=== PATIENT | female | born 1970 | race Caucasian/White ===

== ENCOUNTER 2017-02-07 14:38 | Observation (INO) ==
[2017-02-07] MEDS ORDERED: *HR* OxyCODONE/APAP 10/325 TABLET PO ONE (15:44)
[2017-02-07] MEDS ORDERED: *HR* FentaNYL (PF) 100 MCG/2 ML VIAL IVP ONE ×4 (15:45→17:56)
--- NOTE | 2017-02-07 15:52 | Emergency Department Note ---
Disposition Clinical Impression: SVC syndrome Disposition: Admitted As Inpatient Condition: Good Time of Disposition: 20:30 General Adult HPI - General Chief complaint: ED General Medical Stated complaint: Needs Stent per cancer center Time Seen by Provider: 02/07/17 14:47 Source: patient Limitations: no limitations Nursing Notes Reviewed: Yes Vital Signs Reviewed: Yes - History of Present Illness HPI Narrative: 46-year-old female history of lung cancer presents with swelling in her right arm. She has received a total of 4 chemotherapy treatments and 5 radiation treatments all starting since November 2016. Her oncologist is Dr. Gross. She was seen and evaluated by her oncologist today and was recommended to come to the emergency department to have a stent placed in her superior vena cava or subclavian by interventional radiology for the swelling. We have spoke to Dr. Gross and the interventional radiologist Dr. Shah, recommend to get basic labs and co-acts. Patient has a history of DVT. She was recently on Eliquis and now on Lovenox. Her last Eliquis dose was yesterday night and Lovenox this morning. She denies any other complaints such as headache, fever, chest pain or shortness of breath. Pain Scale: 4 - Related Data Home Medications Medication Instructions Recorded Confirmed Enoxaparin [Lovenox] 70 mg SQ Q12H 02/07/17 02/07/17 Previous Rx's Medication Instructions Recorded Dexamethasone [Decadron] 1 tab PO BID #60 tab 11/22/16 Docusate [Colace] 100 mg PO BID #60 capsule 11/22/16 Magic Mouthwash [Magic Mouthwash 10 ml PO QID PRN #240 ml 11/22/16 BLM] Ondansetron HCl [Zofran] 4 mg PO Q4H PRN #30 tablet 11/22/16 Prochlorperazine Maleate 10 mg PO Q6H PRN #30 tablet 11/22/16 [Compazine] Magnesium Oxide [Magnesium] 400 mg PO BID #60 tablet 12/03/16 Omeprazole [PriLOSEC] 20 mg PO DAILY #30 cap 12/16/16 LORazepam [Ativan] 1 mg PO BID PRN #30 tablet 12/24/16 Temazepam [Restoril] 15 - 30 mg PO HS PRN #60 capsule 12/24/16 Folic Acid 1 mg PO DAILY #30 tablet 01/03/17 Lactulose 15 ml PO BID PRN #300 mls 01/03/17 Sennosides [Senna] 8.6 mg PO DAILY PRN #60 tablet 01/03/17 GuaiFENesin/Codeine [Robitussin 5 - 10 ml PO TID #300 ml 01/15/17 w/Codeine] Azithromycin [Azithromycin 6-Tab 250 mg PO PER PKG DI #6 tab 02/05/17 Pack] Oxycodone HCl/Acetaminophen 1 each PO Q4H PRN #120 tablet 02/06/17 [Percocet 10-325 mg Tablet] Allergies Allergy/AdvReac Type Severity Reaction Status Date / Time No Known Allergies Allergy Verified 02/07/17 16:50 All systems ED: reviewed and negative except as stated. Review of Systems: As Per HPI Constitutional: Denies: fever, chills ENT ED: Denies: congestion Cardiovascular: Denies: chest pain, dyspnea on exertion Respiratory: Reports: cough. Denies: dyspnea Gastrointestinal: Denies: abdominal pain, nausea, vomiting Genitourinary: Denies: urgency, dysuria Musculoskeletal: Denies: back pain, neck pain Integumentary: Denies: rash, abrasion Neurological: Denies: headache Allergic/Immunologic: Denies: facial swelling Past Medical History - Past Medical History Attestation: Yes The following information was validated with the patient. Source: patient Medical history: Reports: no medical history, cancer, other Surgical history: Reports: appendectomy Psychiatric history: Reports: anxiety - Social History Smoking Status: Former smoker Smokeless Tobacco Status: No Alcohol use: Reports: rarely Drug use: Reports: none Physical Exam - General Limitations: no limitations General appearance: alert, in no apparent distress - Head Head exam: atraumatic, normocephalic, normal inspection - Eye Eye exam: Present: normal appearance, PERRL, EOMI - ENT ENT exam: normal exam, normal oropharynx, mucous membranes moist - Neck Neck exam: Present: normal inspection, full ROM, trachea midline - Chest Chest inspection: Present: normal inspection, symmetric chest wall rise. Absent : tenderness - Respiratory Respiratory exam: Present: normal lung sounds bilaterally. Absent: respiratory distress, wheezes - Cardiovascular Cardiovascular exam: Present: regular rate, normal rhythm, normal heart sounds - Expanded Cardiovascular Exam Peripheral pulses: 2+: radial (R), radial (L) - Abdominal Exam Abdominal exam: Present: soft, Non-Tender, normal bowel sounds. Absent: tenderness, distention, guarding, rebound, rigidity - Extremities Exam Extremities exam: Present: normal inspection, full ROM, other (swelling to right upper extremity). Absent: tenderness - Neurological Exam Neurological exam: Present: alert, oriented X3 - Skin Skin exam: Present: warm, dry, intact, normal color, other (no flushing of face) . Absent: rash, cyanosis, diaphoresis, erythema Course - Reevaluation(s) Reevaluation #1: We have spoken to Dr. Gross and the interventional radiologists. They agree with the plan for basic labs and stenting later today. PT/INR is 1.3. Platelets are slightly low 121. She does have a leukocytosis. Patients afebrile here. Patient will be admitted for stenting. Impression is concern for superior vena cava syndrome. Vital Signs Temperature 98.4 F 02/07/17 14:40 Pulse Rate 108 02/07/17 14:40 Respiratory Rate 18 02/07/17 14:40 Blood Pressure 111/69 02/07/17 14:40 O2 Sat by Pulse Oximetry 94 02/07/17 14:40 Temperature 100.9 F H 02/07/17 19:22 Pulse Rate 131 02/07/17 20:21 Respiratory Rate 18 02/07/17 20:21 Blood Pressure 113/67 02/07/17 20:21 O2 Sat by Pulse Oximetry 96 02/07/17 20:21 Oxygen Delivery Oxygen Delivery Room Air Medical Decision Making - MDM Narrative Medical decision making narrative: Patient was discussed with my attending physician who agrees with ED management and final disposition. They independently evaluated the patient. Please refer to their attestation to this encounter for additional information. This note was generated by [employer] voice recognition software and as a result grammatical or spelling errors may occur using this program. - Medical Records Medical records reviewed: Yes I reviewed the patient's medical records. - Lab Data Lab results reviewed: Yes I reviewed the patient's lab results. Result diagrams: 02/07/17 15:56 02/07/17 15:56 Lab Results 02/07/17 02/07/17 02/07/17 Range/Units 15:56 15:56 15:56 WBC 16.5 H D (4.3-11.1) K/mcL RBC 3.27 L (3.82-4.97) M/mcL Hgb 9.7 L (11.5-15.4) g/dL Hct 30.5 L (35.3-44.9) % MCV 93.3 (83.0-100.0) fL MCH 29.7 (28.0-33.3) pg MCHC 31.8 (31.6-35.5) g/dL RDW 18.2 H (11.5-14.5) % Plt Count 121 L (140-400) K/mcL MPV 9.2 L (9.4-12.4) fL Immature Gran % 1.9 (0-4) % Seg Neutrophils % 86.4 % Lymphocytes % 3.1 % Monocytes % 6.3 % Eosinophils % 1.8 % Basophils % 0.5 % Neutrophils # 14.3 H (1.6-8.9) K/mcL Lymphocytes # 0.5 L (0.6-4.6) K/mcL Monocytes # 1.0 (0.0-1.3) K/mcL Eosinophils # 0.3 (0.0-0.6) K/mcL Basophils # 0.1 (0.0-0.2) K/mcL Toxic Granulation Present A (Not Present) PT 14.4 H (9.4-12.1) Seconds INR 1.3 APTT 32.0 (26.0-36.0) Seconds Sodium 136 (136-145) mEq/L Potassium 3.7 (3.5-4.5) mEq/L Chloride 98 (98-109) mEq/L Carbon Dioxide 24 (19-29) mEq/L BUN 6 L (7-20) mg/dL Creatinine 0.56 L (0.57-1.11) mg/dL Est GFR ( Amer) > 60 (> 60) Est GFR (Non-Af Amer) > 60 (> 60) BUN/Creatinine Ratio 11 (6-26) Glucose 92 (70-99) mg/dL Calculated Osmolality 279 L (280-300) Calcium 8.6 (8.6-10.8) mg/dL Attestation Statement - Attestation Attestation: I, Elroy Redding, examined this patient and my medical decision-making was reviewed with the CLEAN RICE GRADER [employer] REEL TENDER/PA/Advanced Practice Nurse/Resident Physician. I agree with the documented findings, disposition and treatment plan as described except to the extent set forth below. 46-year-old female presents emergency Department with concerns of swelling to the bilateral upper extremity and face. Patient has a history of lung cancer and was recently diagnosed with DVT of the right upper extremity. She has a diagnosis of superior vena cava syndrome. She is referred to the emergency department by Dr. Gross for placement of stent by Dr. Atkins of interventional radiology. I spoke with Dr. Gross who confirmed this plan. Patient is stable in the emergency department. The resident spoke with the interventional radiologist who agreed with the plan for stenting later today. Patient pain well-controlled the emergency department with IV narcotics.
[2017-02-07 16:05] LABS: Basophils # 0.1 K/mcL (0.0-0.2); Basophils % 0.5 %; Eosinophils # 0.3 K/mcL (0.0-0.6); Eosinophils % 1.8 %; Hematocrit 30.5 % (35.3-44.9); Hemoglobin 9.7 g/dL (11.5-15.4); Immature Granulocytes % 1.9 % (0-4); Lymphocytes # 0.5 K/mcL (0.6-4.6); Lymphocytes % 3.1 %; Mean Corpuscular HGB Conc 31.8 g/dL (31.6-35.5); Mean Corpuscular Hemoglobin 29.7 pg (28.0-33.3); Mean Corpuscular Volume 93.3 fL (83.0-100.0); Mean Platelet Volume 9.2 fL (9.4-12.4); Monocytes % 6.3 %; Neutrophils # 14.3 K/mcL (1.6-8.9); Platelet Count 121 K/mcL (140-400); Red Blood Count 3.27 M/mcL (3.82-4.97); Red Cell Distribution Width 18.2 % (11.5-14.5); Segmented Neutrophils % 86.4 %
[2017-02-07 16:11] LABS: INR 1.3; Prothrombin Time 14.4 Seconds (9.4-12.1)
[2017-02-07 16:18] LABS: BUN/Creatinine Ratio 11 (6-26); Blood Urea Nitrogen 6 mg/dL (7-20); Calcium 8.6 mg/dL (8.6-10.8); Carbon Dioxide 24 mEq/L (19-29); Chloride 98 mEq/L (98-109); Glucose 92 mg/dL (70-99); Osmolality,Calculated 279 (280-300); Potassium 3.7 mEq/L (3.5-4.5); Sodium 136 mEq/L (136-145); eGFR For African Americans > 60 (> 60); eGFR For Non-African Americans > 60 (> 60)
[2017-02-07 16:20] LABS: Toxic Granulation Present (Not Present)
[2017-02-07] MEDS ORDERED: 0.9 % Sodium Chloride 500 ML ONE ×2 (16:30→17:14)
[2017-02-07] MEDS ORDERED: Heparin 1,000 UNITS/500 mL NS 1,000 UNIT/500 ML IV.SOLN IVC ONE (16:42)
[2017-02-07] MEDS ORDERED: *HR* Midazolam HCl 2 MG/2 ML VIAL IVP ONE ×2 (16:45→17:56)
[2017-02-07] MEDS ORDERED: Heparin 1,000 UNIT, 0.9 % Sodium Chloride 500 ML INARTERIAL ONE (17:00)
[2017-02-07] MEDS ORDERED: CeFAZolin Premix DUPLEX 2,000 MG/50 ML BAG IVPB ONE (17:54)
--- NOTE | 2017-02-07 19:33 | IR Procedure Note ---
Date of procedure: 02/07/17 Consent Obtained: Written consent Timeout: Correct patient and procedure verified, Correct site verified, Time out performed, Skin prep completed Local anesthetic: Lidocaine 1% Indications: Lung cancer, SVC filling defect, thrombus vs tumor Procedure Performed: SVC stent placement x 2, angiogram Site/Technique: RCFV access with 12fr sheath. 12x60 and 14 x 40mm stent used. Results/Findings: Covered stent placed within bare metal stent. Patent subclavians pre/post Estimated blood loss (cc): 10 Post Procedure Treatment Plan: Monitoring on floor. Risk of bleeding at groin. Pressure dressing placed.
--- NOTE | 2017-02-07 20:51 | Internal Med History&Physical ---
<KelywoorickieBrian may - Last Filed: 02/08/17 04:19> Date of Encounter: 02/08/17 Time of Encounter: 20:30 Assessment and Plan (1) SVC (superior vena cava obstruction) Current visit: Yes Status: Acute Venous duplex shows thrombus seen in the right jugular and right subclavian. SVC was likely secondary to thrombus v. tumor obstruction. INR upon presentation was 1.3. Patient underwent SVC stent placement today. Vitals stable. Spoke to Dr. Gross today, he recommended that we resume her Lovenox 70 mg BID. Spoke to Dr. Gómez from IR who performed the procedure and he recommended that we hold off on the lovenox untill tomorrow morning due to concern of her hemoptysis and risk of further bleeding. - Hold lovenox for now. (2) Cough Current visit: Yes Status: Acute Patient has been experiencing symptoms of cough with hemoptysis for the past week. She is also presenting with some wheezing as well. Chest CTA shows large right pleural effusion with collapse of the entire right lower lobe and the majority of the right upper lobe as well. Her coughing and wheezing is likely due to the SVC and pleural effusion from the tumor. - Supportive care with cough suppressant for now. (3) Leukocytosis Current visit: Yes Status: Acute Elevated at 16.5. Patient afebrile. - Likely reactive leukocytosis secondary to surgical procedure. Qualifiers: Leukocytosis type: unspecified Qualified Code(s): D72.829 - Elevated white blood cell count, unspecified (4) Adenocarcinoma of right lung, stage 4 Current visit: Yes Status: Chronic Patient follows Dr. Gross. - Continue home pain medications. (5) GERD (gastroesophageal reflux disease) Current visit: Yes Status: Acute - omeprazole. Qualifiers: Esophagitis presence: esophagitis presence not specified Qualified Code(s) : K21.9 - Gastro-esophageal reflux disease without esophagitis (6) DVT prophylaxis Current visit: Yes Status: Acute - SCDs. Internal Medicine - H&P: HPI Chief complaint: Face fullness Admitted From: Emergency Dept History of present illness: Ms. Mcdaniels is a 46 year old female with a PMHx of stage iv lung adenocarcinoma and DVT that presents s/p SVC stent placement. Patient says that she began to feel neck and facial fullness around late January and says that it has been gradually increasing in size until this past week, which started to get much worse. She has started coughing considerably this week, to the point where she has coughed up blood. She also admits to some SOB. She deneis any fever, chest pain, dysphagia, MANDUJANO, blurry vision, confusion, syncope, or vomiting. Patient also states that she had a clot in her R arm which presented with swelling starting 2 days ago. She currently is on Lovenox at home. She came to the ED per request of Dr. Gross to receive stent placement of the SVC. The procedure was performed by Dr. Gómez. She currently denies any SOB, chest pain, MANDUJANO, confusion, nausea, vomiting, dysphagia, light-headedness, fever, or confusion. Past Med Surg Social Fam HX - Past Medical History Medical history: cancer, other Psychiatric history: anxiety - Past Surgical History Surgical History: appendectomy - Social History Smoking Status: Former smoker Smokeless Tobacco Status: No Alcohol use: rarely Drug use: none Internal Medicine - H&P: Meds Dexamethasone [Decadron] 1 tab PO BID #60 tab 11/22/16 [Rx] Docusate [Colace] 100 mg PO BID #60 capsule 11/22/16 [Rx] Magic Mouthwash [Magic Mouthwash BLM] 10 ml PO QID PRN #240 ml 11/22/16 [Rx] Ondansetron HCl [Zofran] 4 mg PO Q4H PRN #30 tablet 11/22/16 [Rx] Prochlorperazine Maleate [Compazine] 10 mg PO Q6H PRN #30 tablet 11/22/16 [Rx] Magnesium Oxide [Magnesium] 400 mg PO BID #60 tablet 12/03/16 [Rx] Omeprazole [PriLOSEC] 20 mg PO DAILY #30 cap 12/16/16 [Rx] LORazepam [Ativan] 1 mg PO BID PRN #30 tablet 12/24/16 [Rx] Temazepam [Restoril] 15 - 30 mg PO HS PRN #60 capsule 12/24/16 [Rx] Folic Acid 1 mg PO DAILY #30 tablet 01/03/17 [Rx] Lactulose 15 ml PO BID PRN #300 mls 01/03/17 [Rx] Sennosides [Senna] 8.6 mg PO DAILY PRN #60 tablet 01/03/17 [Rx] GuaiFENesin/Codeine [Robitussin w/Codeine] 5 - 10 ml PO TID #300 ml 01/15/17 [Rx ] Azithromycin [Azithromycin 6-Tab Pack] 250 mg PO PER PKG DI #6 tab 02/05/17 [Rx] Oxycodone HCl/Acetaminophen [Percocet 10-325 mg Tablet] 1 each PO Q4H PRN #120 tablet 02/06/17 [Rx] Enoxaparin [Lovenox] 70 mg SQ Q12H 02/07/17 [History] 3 Allergy/AdvReac Type Severity Reaction Status Date / Time No Known Allergies Allergy Verified 02/07/17 16:50 All Systems PM: A 10-system review of systems was performed and is negative for pertinent findings except as documented above in the HPI. - Constitutional Constitutional: no chills, no fever(s) - EENT Eyes: no blurry vision Nose, mouth and throat: neck mass, neck pain, throat swelling, no dysphagia, no hoarseness, no odynophagia - Cardiovascular Cardiovascular ROS IM: dyspnea, no chest pain, no lightheadedness, no palpitations, no syncope - Respiratory Respiratory: cough, dyspnea, hemoptysis, wheezing, chest congestion - Gastrointestinal Gastrointestinal: constipation, nausea, no abdominal pain, no diarrhea, no dysphagia, no hematemesis, no vomiting - Neurological Neurological ROS: no confusion, no dizziness, no headache(s) - Constitutional Vitals: Temp Pulse Resp BP Pulse Ox 100.9 F H 131 18 113/67 96 02/07/17 19:22 02/07/17 20:21 02/07/17 20:21 02/07/17 20:21 02/07/17 20:21 General appearance: Present: A&O X 3, pleasant, no acute distress, answers questions appropriately - Neck Neck exam general surgery: Absent: tenderness Additional comments: Minor swelling of neck bilaterally. - Respiratory Respiratory exam: Present: wheezes (Bilaterally on anterior posts. ). Absent: chest wall tenderness - Cardiovascular Cardiovascular exam: Present: RRR, +S1, +S2. Absent: JVD Additional comments: No carotid bruits detected bilaterally. - GI/Abdominal GI/Abdominal exam: Present: normal bowel sounds, soft, tenderness (Minor diffuse tenderness. ). Absent: guarding - Extremities Exam Extremities exam: Present: normal capillary refill, normal inspection, radial pulses palpable and symmetrical. Absent: calf tenderness, cyanotic, pedal edema , tenderness Additional comments: Surgical incision wound on R inguinal area. Dressed. Intact. No signs of active bleeding, pus, or drainage. No calf tenderness bilaterally. Negative Sade's sign bilaterally. - Neurological Exam Neurological exam: Present: CN II-XII intact, oriented X3, reflexes normal, no focal deficits, strengths equal and symetr throughout. Absent: motor sensory deficit Internal Med - H&P Results - Labs CBC & Chem 7: 02/07/17 15:56 02/07/17 15:56 <Tee Burrell - Last Filed: 02/08/17 04:50> Date of Encounter: 02/07/17 Internal Medicine - H&P: HPI History of present illness: Ms. Mcdaniels is a 46 year old female All Systems PM: A 10-system review of systems was performed and is negative for pertinent findings except as documented above in the HPI. - Constitutional Vitals: Temp Pulse Resp BP Pulse Ox 99.1 F 113 17 103/67 95 02/08/17 03:41 02/08/17 03:41 02/08/17 03:41 02/08/17 03:41 02/08/17 03:41 Internal Med - H&P Results - Labs CBC & Chem 7: 02/08/17 04:09 02/07/17 15:56 Labs: Short CBC 02/08/17 Range/Units 04:09 WBC 13.3 H (4.3-11.1) K/mcL Hgb 9.0 L (11.5-15.4) g/dL Hct 27.8 L (35.3-44.9) % Plt Count 95 L (140-400) K/mcL Neutrophils # 10.6 H (1.6-8.9) K/mcL - Attending Attestation I have personally and placing the patient and examined the patient./ Dictation / Nurse Practioner findings and plan discussed. Chest clear heart S1 and S2 rate rhythm regular abdomen soft nontender no organomegaly. Patient had a stent today for SVC syndrome due to lung cancer. She feels much better already. She can be discharged on Eliquis as she has right upper extremity DVT. Patient questions answered. She is is stable.
[2017-02-07] MEDS ORDERED: *HR* HYDROcodone/Acet 5/325 mg TABLET PO PRN (21:42)
[2017-02-07] MEDS ORDERED: Ondansetron ODT 4 MG TAB.RAPDIS SL PRN (21:42)
[2017-02-07] MEDS ORDERED: *HR* LORazepam 1 MG TABLET PO PRN (21:44)
[2017-02-07] MEDS ORDERED: Lactulose Oral Soln 20 GM/30 ML UDC PO PRN (21:44)
[2017-02-07] MEDS ORDERED: Temazepam 15 MG CAPSULE PO PRN (21:44)
[2017-02-07] MEDS ORDERED: *HR* Enoxaparin 80 MG/0.8 ML SYRINGE SQ SCH (21:45)
[2017-02-07] MEDS: GuaiFENesin/Codeine Oral Soln 5 ML UDC PO PRN (22:02)
[2017-02-07] MEDS: Magnesium Oxide 400 MG TABLET PO SCH (23:02)
[2017-02-08] MEDS: *HR* OxyCODONE/APAP 10/325 TABLET PO PRN ×2 (00:47→07:46)
[2017-02-08 04:26] LABS: Basophils # 0.1 K/mcL (0.0-0.2); Basophils % 0.5 %; Eosinophils # 0.4 K/mcL (0.0-0.6); Eosinophils % 2.9 %; Hematocrit 27.8 % (35.3-44.9); Immature Granulocytes % 2.3 % (0-4); Immature Platelets 1.7 % (1.1-6.1); Lymphocytes # 0.6 K/mcL (0.6-4.6); Lymphocytes % 4.8 %; Mean Corpuscular HGB Conc 32.4 g/dL (31.6-35.5); Mean Corpuscular Hemoglobin 29.8 pg (28.0-33.3); Mean Corpuscular Volume 92.1 fL (83.0-100.0); Mean Platelet Volume 9.4 fL (9.4-12.4); Monocytes # 1.4 K/mcL (0.0-1.3); Monocytes % 10.2 %; Neutrophils # 10.6 K/mcL (1.6-8.9); Nucleated Red Blood Cells 0.2 /100 WBC (0); Red Blood Count 3.02 M/mcL (3.82-4.97); Red Cell Distribution Width 18.2 % (11.5-14.5); Segmented Neutrophils % 79.3 %
[2017-02-08 04:41] LABS: Platelet Count 95 K/mcL (140-400)
[2017-02-08 04:42] LABS: BUN/Creatinine Ratio 10 (6-26); Calcium 7.9 mg/dL (8.6-10.8); Carbon Dioxide 27 mEq/L (19-29); Chloride 105 mEq/L (98-109); Glucose 96 mg/dL (70-99); Osmolality,Calculated 285 (280-300); Potassium 3.9 mEq/L (3.5-4.5); Sodium 139 mEq/L (136-145); eGFR For African Americans > 60 (> 60); eGFR For Non-African Americans > 60 (> 60)
[2017-02-08 04:44] LABS: Anisocytosis 1+ (Not Present); Platelet Estimate Decreased (Normal)
[2017-02-08 04:48] LABS: Blood Urea Nitrogen 5 mg/dL (7-20)
[2017-02-08 07:44] VITALS: BP 110/65
[2017-02-08] MEDS: Magnesium Oxide 400 MG TABLET PO SCH (07:45)
[2017-02-08] MEDS: GuaiFENesin/Codeine Oral Soln 5 ML UDC PO PRN (07:45)
--- NOTE | 2017-02-08 08:56 | Discharge Summary ---
Date of Encounter: 02/08/17 Time of Encounter: 08:54 - Discharge Diagnosis (1) SVC syndrome Priority: Primary Status: Acute Comments: s/p SVC stent. (2) Adenocarcinoma of right lung, stage 4 Priority: Secondary Status: Chronic (3) GERD (gastroesophageal reflux disease) Priority: Secondary Status: Chronic Qualifiers: Esophagitis presence: without esophagitis Qualified Code(s): K21.9 - Gastro -esophageal reflux disease without esophagitis (4) DVT of lower extremity, bilateral Priority: Secondary Status: Acute Qualifiers: Affected thrombotic vein of extremity: unspecified vein of extremity Chronicity: acute Qualified Code(s): I82.403 - Acute embolism and thrombosis of unspecified deep veins of lower extremity, bilateral (5) Anxiety Priority: Secondary Status: Chronic - Discharge Medications Home Medications: Dexamethasone [Decadron] 1 tab PO BID #60 tab 11/22/16 [Rx] Docusate [Colace] 100 mg PO BID #60 capsule 11/22/16 [Rx] Magic Mouthwash [Magic Mouthwash BLM] 10 ml PO QID PRN #240 ml 11/22/16 [Rx] Ondansetron HCl [Zofran] 4 mg PO Q4H PRN #30 tablet 11/22/16 [Rx] Prochlorperazine Maleate [Compazine] 10 mg PO Q6H PRN #30 tablet 11/22/16 [Rx] Magnesium Oxide [Magnesium] 400 mg PO BID #60 tablet 12/03/16 [Rx] Omeprazole [PriLOSEC] 20 mg PO DAILY #30 cap 12/16/16 [Rx] LORazepam [Ativan] 1 mg PO BID PRN #30 tablet 12/24/16 [Rx] Temazepam [Restoril] 15 - 30 mg PO HS PRN #60 capsule 12/24/16 [Rx] Folic Acid 1 mg PO DAILY #30 tablet 01/03/17 [Rx] Lactulose 15 ml PO BID PRN #300 mls 01/03/17 [Rx] Sennosides [Senna] 8.6 mg PO DAILY PRN #60 tablet 01/03/17 [Rx] GuaiFENesin/Codeine [ROBITUSSIN w/CODEINE] 5 - 10 ml PO TID #300 ml 01/15/17 [Rx ] Oxycodone HCl/Acetaminophen [Percocet 10-325 mg Tablet] 1 each PO Q4H PRN #120 tablet 02/06/17 [Rx] Enoxaparin [Lovenox] 70 mg SQ Q12H 02/07/17 [History] Allergies/Adverse Reactions: 3 Allergy/AdvReac Type Severity Reaction Status Date / Time No Known Allergies Allergy Verified 02/07/17 16:50 Procedures/tests Complete & Pending: Procedures Performed prior 72 hours Category Date Time Status IR machine captain venous [IR] Routine IR 02/07/17 Taken Date of admission: 02/07/17 16:48 Primary care physician: Hemanth Gates Jr, MD Consults: 02/07/17 18:04 Consult to Interventional Radiology [CONS] Stat Consulting Provider: Radiology Interventional Cols Reason for Consult: SVC SYNDROME, STENT PLACEMENT Call Completed: Yes Consult to Oncology [CONS] Stat Consulting Provider: Oncology [facility] Reason for Consult: SVC SYNDROME, LUNG CA Call Completed: Yes Discharging clinician: Royer Ram Anticipated date of discharge: 02/08/17 - Patient Status Disposition: Home, Self-Care Condition: Good Functional capacity at discharge: independent ambulation Overall status at discharge: patient is progressing back to baseline - Discharge Instructions Follow Up With: Idalia Gross MD [Partnered Physician] - (FOLLOW UP PREV SCHEDULED ON Jan) Hemanth Gates Jr, MD [Primary Care Provider] - (DR. GATES WILL CALL YOU WITH A FOLLOW UP APPOINTMENT. (WEB REQUEST MADE). ) Additional Instructions: RISK FACTORS: LIFTING: Avoid lifting anything more than 10 pounds for 5-7 days Prior to straining, laughing, sneezing and/or coughing, apply manual pressure directly over insertion site. ACTIVITY: You may walk or climb stairs as tolerated You can resume sexual activity as tolerated In general, you are encouraged to engage in a minimum of 30 minutes or more of moderate intensity physical activity, such as brisk walking, daily or at least 3 -4 times weekly BATHING Do not submerge the site into water (bath tub, hot tub, swimming pool) for 1 week. This can be a source for infection into the blood stream. You may shower after 24 hours SITE CARE: After 24 hours, you may remove the dressing and leave the site open to air. Keep the site clean and dry. Clean gently and pat dry. You can expect bruising and tenderness that gradually resolve within a week or two. Return to work as instructed per your physician Resume driving as instructed per physician Keep all scheduled follow up appointments Resume medications as instructed STROKE (CVA) Risk factors for a stroke are: Age, cigarette smoking, diabetes, excessive alcohol consumption, family history, high blood pressure, overweight, physical inactivity, prior stroke, heart attack, diagnosis of carotid artery stenosis or other artery disease. Warning signs: Sudden numbness or weakness of the face, arm or leg; especially on one side of the body, sudden confusion, trouble speaking or understanding, sudden trouble seeing in one or both eyes, sudden trouble walking, dizziness, loss of balance or coordination, sudden severe headache with no cause. Call 911 or go to the Emergency Room. BLEEDING: Although the risk of bleeding is minimal, it can happen. If you have any bleeding from the site, apply firm pressure above the puncture site for 10-15 minutes. If the bleeding does not stop, continue manual pressure and call 911 Contact your physician if: You develop a fever greater than 101 degrees Fahrenheit Your site becomes reddened or has any drainage You have an increase in pain or burning at the site or if a large knot forms at the site. If you experience chest pain, shortness of breath, dizziness, or extreme tiredness, stop the activity and rest. Please notify your physicians office if you experience any of these symptoms and they are not relieved by rest please call 911! - Diet and Activity Activity: increase activity as tolerated Diet: advance to your usual diet Hospital course: Ms. Mcdaniels is a 46 year old female with stage 4 lung cancer who underwent SVC stent placement yesterday. She had noticed face and neck swelling as well as increased cough. She came to ED and stent was placed. She was then placed in observation overnight. Ms Mcdaniels was placed in observation following SVC stent placement. She had no acute issues overnight and in the AM was afebrile with stable vitals At that time she was ready for discharge home with outpatient follow up. Family at bedside and agreeable to discharge with her. - Time Spent with Patient Total time spent providing and/or coordinating discharge services: - Constitutional Vitals: Temp Pulse Resp BP Pulse Ox 98.3 F 105 15 110/65 94 02/08/17 07:42 02/08/17 07:58 02/08/17 07:42 02/08/17 07:42 02/08/17 07:42 General appearance: Present: A&O X 3, pleasant, answers questions appropriately - Head Head exam: Present: normocephalic - Eye Eye exam: Present: EOMI, conjuntiva pink - ENT ENT exam: Present: mucous membranes moist - Respiratory Respiratory exam: Absent: rhonchi, wheezes - Cardiovascular Cardiovascular exam: Present: RRR. Absent: tachycardia - GI/Abdominal GI/Abdominal exam: Present: soft. Absent: tenderness - Extremities Exam Extremities exam: Present: warm. Absent: tenderness - Neurological Exam Neurological exam: Present: alert, oriented X3
--- NOTE | 2017-02-10 02:14 | Electrocardiograph Report ---
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
== END 2017-02-08 10:10 | disposition home or self-care (01) ==
LOC: EMEROO 14:38 → 2NNU 14:38
PROVIDERS: ADMIT Internal Medicine; ATTEND Internal Medicine

== ENCOUNTER 2017-03-25 07:38 | Inpatient (IN) ==
[2017-03-25] MEDS ORDERED: Famotidine 20 MG/2 ML VIAL IVP ONE (07:45)
[2017-03-25] MEDS ORDERED: methylPREDNISolone 125 MG/2 ML VIAL IVP ONE (07:45)
[2017-03-25] MEDS ORDERED: Ipratropium/Albuterol Neb 3 ML IH ONE (07:45)
[2017-03-25] MEDS ORDERED: Piperacillin/Tazobactam 3.375 GM in Water for inj. (sterile) 20 ML IVP ONE (07:45)
[2017-03-25] MEDS ORDERED: 0.9 % Sodium Chloride 1,000 ML IVC ONE (07:45)
[2017-03-25] MEDS ORDERED: Cefepime HCl 2,000 MG in Water for inj. (sterile) 20 ML IVP ONE (07:45)
[2017-03-25 08:26] LABS: ABG Base Excess 0 mEq/L (-2 to 3); ABG HCO3 25 mEq/L (21-27); ABG Oxygen Saturation 99 % (95-98); ABG PCO2 41 mmHg (35-45); ABG PO2 155 mmHg (85-104); ABG TCO2 27 mEq/L (20-26)
[2017-03-25 08:30] LABS: Basophils # 0.1 K/mcL (0.0-0.2); Basophils % 0.5 %; Eosinophils # 0.7 K/mcL (0.0-0.6); Eosinophils % 6.6 %; Hematocrit 34.2 % (35.3-44.9); Hemoglobin 10.9 g/dL (11.5-15.4); Immature Granulocytes % 0.8 % (0-4); Lymphocytes # 1.4 K/mcL (0.6-4.6); Lymphocytes % 12.6 %; Mean Corpuscular HGB Conc 31.9 g/dL (31.6-35.5); Mean Corpuscular Hemoglobin 29.4 pg (28.0-33.3); Mean Corpuscular Volume 92.2 fL (83.0-100.0); Mean Platelet Volume 9.3 fL (9.4-12.4); Neutrophils # 7.8 K/mcL (1.6-8.9); Platelet Count 421 K/mcL (140-400); Red Blood Count 3.71 M/mcL (3.82-4.97); Red Cell Distribution Width 14.8 % (11.5-14.5); Segmented Neutrophils % 70.5 %
[2017-03-25 08:31] LABS: INR 1.2
[2017-03-25 08:33] LABS: Activated Partial Thrombo Time 26.4 Seconds (26.0-36.0)
[2017-03-25 08:38] LABS: Alanine Aminotransferase 6 Units/L (7-52); Albumin 3.3 g/dL (3.5-5.7); Albumin/Globulin Ratio 0.9 (1.1-2.2); Alkaline Phosphatase 70 Units/L (34-104); Aspartate Amino Transferase 9 Units/L (13-39); BUN/Creatinine Ratio 10 (6-26); Bilirubin,Direct 0.1 mg/dL (0.0-0.2); Bilirubin,Indirect 0.2 mg/dL (0.0-1.2); Bilirubin,Total 0.3 mg/dL (0.3-1.0); Blood Urea Nitrogen 5 mg/dL (6-20); Calcium 9.2 mg/dL (8.6-10.3); Carbon Dioxide 22 mEq/L (23-29); Chloride 102 mEq/L (98-107); Globulin 3.6 g/dL (2.4-3.5); Glucose 154 mg/dL (70-105); Magnesium 1.7 mg/dL (1.6-2.6); Osmolality,Calculated 282 (280-300); Phosphorous 3.4 mg/dL (2.7-4.5); Potassium 3.8 mEq/L (3.5-5.1); Sodium 136 mEq/L (136-145); Total Protein 6.9 g/dL (6.4-8.9); eGFR For African Americans > 60 (> 60); eGFR For Non-African Americans > 60 (> 60)
[2017-03-25] MEDS ORDERED: *HR* HYDROmorphone 2 MG/ML SYRINGE IVP ONE ×2 (08:48→16:12)
[2017-03-25] MEDS ORDERED: Heparin 1,000 UNITS/500 mL 500 ML ONE ×2 (11:38→12:59)
[2017-03-25] MEDS ORDERED: *HR* Midazolam HCl 2 MG/2 ML VIAL ONE (12:14)
[2017-03-25] MEDS ORDERED: *HR* FentaNYL (PF) 100 MCG/2 ML VIAL ONE (12:15)
[2017-03-25] MEDS ORDERED: *HR* FentaNYL (PF) 100 MCG/2 ML VIAL IVP ONE ×2 (12:18→20:16)
[2017-03-25] MEDS ORDERED: *HR* Midazolam HCl 2 MG/2 ML VIAL IVP ONE (12:18)
[2017-03-25] MEDS ORDERED: 0.9 % Sodium Chloride 1,000 ML ONE (12:23)
[2017-03-25] MEDS ORDERED: *HR* Heparin 5,000 UNIT/ML VIAL ONE (12:35)
[2017-03-25] MEDS ORDERED: Naloxone 0.4 MG/ML INJ IVP PRN ×2 (12:39→16:16)
[2017-03-25] MEDS ORDERED: Acetaminophen 325 MG TABLET PO PRN (12:39)
[2017-03-25] MEDS ORDERED: Temazepam 15 MG CAPSULE PO PRN (12:49)
[2017-03-25] MEDS ORDERED: Ondansetron ODT 4 MG TAB.RAPDIS PO PRN (12:49)
[2017-03-25] MEDS ORDERED: Sennosides 8.6 MG TABLET PO PRN (12:49)
[2017-03-25] MEDS ORDERED: *HR* HYDROmorphone 2 MG TABLET PO PRN (12:49)
[2017-03-25] MEDS ORDERED: Lactulose Oral Soln 20 GM/30 ML UDC PO PRN (12:49)
[2017-03-25] MEDS ORDERED: *HR* Alteplase (Cathflo) 2 MG VIAL IVP STA (12:51)
[2017-03-25 12:54] LABS: Influenza A PCR Negative (Negative); Influenza B PCR Negative (Negative)
[2017-03-25] MEDS ORDERED: *HR* FentaNYL PATCH 75 MCG PATCH TD SCH (13:00)
[2017-03-25] MEDS ORDERED: *HR* FentaNYL PATCH 50 MCG PATCH TD SCH (13:00)
[2017-03-25] MEDS ORDERED: *HR* Heparin 5,000 UNIT/ML VIAL IVP PRN ×2 (15:46)
[2017-03-25] MEDS ORDERED: *HR* Heparin 5,000 UNIT/ML VIAL IVP ONE (15:46)
[2017-03-25] MEDS ORDERED: *HR* HYDROmorphone 2 MG/ML SYRINGE ONE (15:58)
[2017-03-25] MEDS ORDERED: Albuterol 2.5 MG/3 ML NEBULIZER IH SCH (16:00)
[2017-03-25] MEDS ORDERED: Ipratropium/Albuterol Neb 3 ML ONE (16:03)
[2017-03-25] MEDS: Heparin 25,000 UNIT/500 ML D5W 25,000 UNIT/500 ML BAG IVC SCH (16:06)
--- NOTE | 2017-03-25 16:06 | Emergency Department Note ---
Disposition Clinical Impression: SVC (superior vena cava obstruction) Disposition: Admitted As Inpatient Condition: Critical Referrals: Hemanth Gates Jr, MD [Primary Care Provider] - General Adult HPI - General Chief complaint: ED Allergic Reaction Stated complaint: CLAUDIA Time Seen by Provider: 03/25/17 07:39 Source: patient, family Limitations: no limitations Nursing Notes Reviewed: Yes Vital Signs Reviewed: Yes - History of Present Illness HPI Narrative: 38-year-old female presents with concern for dyspnea and facial cyanosis. History of adenocarcinoma of the lung. She had a stent placed in her SVC and has been on Lovenox. They recently increased her Lovenox. She now complains of dyspnea and facial cyanosis. She is concerned that she was having allergic reaction to her fentanyl patch. Pain Scale: 5 - Related Data Home Medications Medication Instructions Recorded Confirmed Dabrafenib Mesylate [Tafinlar] 75 mg PO DAILY 03/25/17 03/25/17 Enoxaparin [Lovenox] 100 mg SQ DAILY 03/25/17 03/25/17 FentaNYL PATCH [Duragesic] 25 mcg TD Q72H 03/25/17 03/25/17 Trametinib Dimethyl Sulfoxide 2 mg PO DAILY 03/25/17 03/25/17 [Mekinist] Previous Rx's Medication Instructions Recorded Docusate [Colace] 100 mg PO BID #60 capsule 11/22/16 Ondansetron HCl [Zofran] 4 mg PO Q4H PRN #30 tablet 11/22/16 Prochlorperazine Maleate 10 mg PO Q6H PRN #30 tablet 11/22/16 [Compazine] Omeprazole [PriLOSEC] 20 mg PO DAILY #30 cap 12/16/16 Temazepam [Restoril] 15 - 30 mg PO HS PRN #60 capsule 12/24/16 Folic Acid 1 mg PO DAILY #30 tablet 01/03/17 Lactulose 15 ml PO BID PRN #300 mls 01/03/17 Sennosides [Senna] 8.6 mg PO DAILY PRN #60 tablet 01/03/17 Albuterol Neb [Proventil Neb] 2.5 mg IH Q4HR #60 vial.neb 02/12/17 FentaNYL PATCH [Duragesic] 50 mcg TD Q72H #10 patch.td72 03/10/17 HYDROmorphone [Dilaudid] 1 - 2 tab PO Q4HR PRN #120 tablet 03/10/17 Allergies Allergy/AdvReac Type Severity Reaction Status Date / Time No Known Allergies Allergy Verified 03/25/17 07:53 Past Medical History - Past Medical History Medical history: Reports: cancer, other Surgical history: Reports: appendectomy Psychiatric history: Reports: anxiety QA SOFTWARE TESTER history: Reports: no QA SOFTWARE TESTER history - Social History Smoking Status: Former smoker Smokeless Tobacco Status: No Alcohol use: Reports: rarely Drug use: Reports: none Physical Exam - General Limitations: no limitations General appearance: alert Course Vital Signs Temperature 98.0 F 03/25/17 07:41 Pulse Rate 124 03/25/17 07:41 Respiratory Rate 26 03/25/17 07:41 Blood Pressure 111/88 03/25/17 07:41 O2 Sat by Pulse Oximetry 91 03/25/17 07:41 Temperature 98.0 F 03/25/17 07:41 Pulse Rate 113 03/25/17 15:44 Respiratory Rate 16 03/25/17 15:44 Blood Pressure 114/73 03/25/17 15:44 O2 Sat by Pulse Oximetry 88 03/25/17 15:44 Oxygen Delivery Oxygen Delivery Nasal Cannula Medical Decision Making - MDM Narrative Medical decision making narrative: On arrival the patient was mildly tachycardic, mildly hypoxic. I did empirically treat for possible early allergic reaction as the etiology of her dyspnea was not known. She had mild improvement with IV fluids. She was sent for CT of the chest to rule out pulmonary embolism. Ultimately I found that she had occlusion of her superior vena cava. I then proceeded to contact the interventional radiologist who took her directly to the IR lab and did direct catheter guided TPA as well as clot extraction. The patient had subsequent improvement of facial cyanosis as well as neck swelling. It was recommended that the patient be transferred to the ICU. Due to the poor availability of ICU beds the patient was brought back to the ER. The patient was admitted to the intensive care unit. I discussed the case with the attending personal security specialist. The patient will be admitted to the ICU for further monitoring. The patient has been accepted to the ICU. I was called to the bedside to evaluate the patient for emergent distress. She had again complaints of facial cyanosis, dyspnea, neck swelling. I called the interventional radiologist again and notified the ICU team. It was requested by the interventional radiologist that the patient have a CTA repeated. If there is occlusion of the SVC the patient should be continued on anticoagulation. It was recommended that the patient be anticoagulated with standard dose heparin. I did start this order. This information was relayed to the ICU team. Additionally I asked if the patient would benefit from transfer. It is not recommended that the patient will require transfer. The interventional radiologist visualized complete resolution of the clot previously. Continue aggressive medical management with anticoagulation at the request of the interventional radiologist. - Lab Data Lab results reviewed: Yes I reviewed the patient's lab results. Result diagrams: 03/25/17 08:09 03/25/17 08:09 Lab Results 03/25/17 03/25/17 03/25/17 Range/Units 08:09 08:09 08:09 WBC 11.0 (4.3-11.1) K/mcL RBC 3.71 L (3.82-4.97) M/mcL Hgb 10.9 L (11.5-15.4) g/dL Hct 34.2 L (35.3-44.9) % MCV 92.2 (83.0-100.0) fL MCH 29.4 (28.0-33.3) pg MCHC 31.9 (31.6-35.5) g/dL RDW 14.8 H (11.5-14.5) % Plt Count 421 H (140-400) K/mcL MPV 9.3 L (9.4-12.4) fL Immature Gran % 0.8 (0-4) % Seg Neutrophils % 70.5 % Lymphocytes % 12.6 % Monocytes % 9.0 % Eosinophils % 6.6 % Basophils % 0.5 % Neutrophils # 7.8 (1.6-8.9) K/mcL Lymphocytes # 1.4 (0.6-4.6) K/mcL Monocytes # 1.0 (0.0-1.3) K/mcL Eosinophils # 0.7 H (0.0-0.6) K/mcL Basophils # 0.1 (0.0-0.2) K/mcL PT 13.0 H (9.4-12.1) Seconds INR 1.2 APTT 26.4 (26.0-36.0) Seconds Sample Site ABG pH (7.32-7.45) pH Units ABG pCO2 (35-45) mmHg ABG pO2 (85-104) mmHg ABG HCO3 (21-27) mEq/L ABG Total CO2 (20-26) mEq/L ABG O2 Saturation (95-98) % ABG Base Excess (-2 to 3) mEq/L Donnie Test O2 Delivery Device Sodium (136-145) mEq/L Potassium (3.5-5.1) mEq/L Chloride (98-107) mEq/L Carbon Dioxide (23-29) mEq/L BUN (6-20) mg/dL Creatinine (0.60-1.20) mg/dL Est GFR ( Amer) (> 60) Est GFR (Non-Af Amer) (> 60) BUN/Creatinine Ratio (6-26) Glucose (70-105) mg/dL Calculated Osmolality (280-300) Lactic Acid (0.5-2.2) mmol/L Calcium (8.6-10.3) mg/dL Phosphorus (2.7-4.5) mg/dL Magnesium (1.6-2.6) mg/dL Total Bilirubin (0.3-1.0) mg/dL Direct Bilirubin (0.0-0.2) mg/dL Indirect Bilirubin (0.0-1.2) mg/dL AST (13-39) Units/L ALT (7-52) Units/L Alkaline Phosphatase (34-104) Units/L Troponin I (< 0.04) ng/mL B-Natriuretic Peptide 28 (Less than 100) pg/mL Serum Total Protein (6.4-8.9) g/dL Albumin (3.5-5.7) g/dL Globulin (2.4-3.5) g/dL Albumin/Globulin Ratio (1.1-2.2) Influenza Type A (PCR) (Negative) Influenza Type B (PCR) (Negative) 03/25/17 03/25/17 03/25/17 Range/Units 08:09 08:09 08:09 WBC (4.3-11.1) K/mcL RBC (3.82-4.97) M/mcL Hgb (11.5-15.4) g/dL Hct (35.3-44.9) % MCV (83.0-100.0) fL MCH (28.0-33.3) pg MCHC (31.6-35.5) g/dL RDW (11.5-14.5) % Plt Count (140-400) K/mcL MPV (9.4-12.4) fL Immature Gran % (0-4) % Seg Neutrophils % % Lymphocytes % % Monocytes % % Eosinophils % % Basophils % % Neutrophils # (1.6-8.9) K/mcL Lymphocytes # (0.6-4.6) K/mcL Monocytes # (0.0-1.3) K/mcL Eosinophils # (0.0-0.6) K/mcL Basophils # (0.0-0.2) K/mcL PT (9.4-12.1) Seconds INR APTT (26.0-36.0) Seconds Sample Site ABG pH (7.32-7.45) pH Units ABG pCO2 (35-45) mmHg ABG pO2 (85-104) mmHg ABG HCO3 (21-27) mEq/L ABG Total CO2 (20-26) mEq/L ABG O2 Saturation (95-98) % ABG Base Excess (-2 to 3) mEq/L Donnie Test O2 Delivery Device Sodium 136 (136-145) mEq/L Potassium 3.8 (3.5-5.1) mEq/L Chloride 102 (98-107) mEq/L Carbon Dioxide 22 L (23-29) mEq/L BUN 5 L (6-20) mg/dL Creatinine 0.52 L (0.60-1.20) mg/dL Est GFR ( Amer) > 60 (> 60) Est GFR (Non-Af Amer) > 60 (> 60) BUN/Creatinine Ratio 10 (6-26) Glucose 154 H (70-105) mg/dL Calculated Osmolality 282 (280-300) Lactic Acid 2.0 (0.5-2.2) mmol/L Calcium 9.2 (8.6-10.3) mg/dL Phosphorus 3.4 (2.7-4.5) mg/dL Magnesium 1.7 (1.6-2.6) mg/dL Total Bilirubin 0.3 (0.3-1.0) mg/dL Direct Bilirubin 0.1 (0.0-0.2) mg/dL Indirect Bilirubin 0.2 (0.0-1.2) mg/dL AST 9 L (13-39) Units/L ALT 6 L (7-52) Units/L Alkaline Phosphatase 70 (34-104) Units/L Troponin I < 0.03 (< 0.04) ng/mL B-Natriuretic Peptide (Less than 100) pg/mL Serum Total Protein 6.9 (6.4-8.9) g/dL Albumin 3.3 L (3.5-5.7) g/dL Globulin 3.6 H (2.4-3.5) g/dL Albumin/Globulin Ratio 0.9 L (1.1-2.2) Influenza Type A (PCR) (Negative) Influenza Type B (PCR) (Negative) 03/25/17 03/25/17 03/25/17 Range/Units 08:22 08:26 11:37 WBC (4.3-11.1) K/mcL RBC (3.82-4.97) M/mcL Hgb (11.5-15.4) g/dL Hct (35.3-44.9) % MCV (83.0-100.0) fL MCH (28.0-33.3) pg MCHC (31.6-35.5) g/dL RDW (11.5-14.5) % Plt Count (140-400) K/mcL MPV (9.4-12.4) fL Immature Gran % (0-4) % Seg Neutrophils % % Lymphocytes % % Monocytes % % Eosinophils % % Basophils % % Neutrophils # (1.6-8.9) K/mcL Lymphocytes # (0.6-4.6) K/mcL Monocytes # (0.0-1.3) K/mcL Eosinophils # (0.0-0.6) K/mcL Basophils # (0.0-0.2) K/mcL PT (9.4-12.1) Seconds INR APTT (26.0-36.0) Seconds Sample Site L Radial ABG pH 7.40 (7.32-7.45) pH Units ABG pCO2 41 (35-45) mmHg ABG pO2 155 H (85-104) mmHg ABG HCO3 25 (21-27) mEq/L ABG Total CO2 27 H (20-26) mEq/L ABG O2 Saturation 99 H (95-98) % ABG Base Excess 0 (-2 to 3) mEq/L Donnie Test N/A O2 Delivery Device AeroMask Sodium (136-145) mEq/L Potassium (3.5-5.1) mEq/L Chloride (98-107) mEq/L Carbon Dioxide (23-29) mEq/L BUN (6-20) mg/dL Creatinine (0.60-1.20) mg/dL Est GFR ( Amer) (> 60) Est GFR (Non-Af Amer) (> 60) BUN/Creatinine Ratio (6-26) Glucose (70-105) mg/dL Calculated Osmolality (280-300) Lactic Acid 1.1 (0.5-2.2) mmol/L Calcium (8.6-10.3) mg/dL Phosphorus (2.7-4.5) mg/dL Magnesium (1.6-2.6) mg/dL Total Bilirubin (0.3-1.0) mg/dL Direct Bilirubin (0.0-0.2) mg/dL Indirect Bilirubin (0.0-1.2) mg/dL AST (13-39) Units/L ALT (7-52) Units/L Alkaline Phosphatase (34-104) Units/L Troponin I (< 0.04) ng/mL B-Natriuretic Peptide (Less than 100) pg/mL Serum Total Protein (6.4-8.9) g/dL Albumin (3.5-5.7) g/dL Globulin (2.4-3.5) g/dL Albumin/Globulin Ratio (1.1-2.2) Influenza Type A (PCR) Negative (Negative) Influenza Type B (PCR) Negative (Negative) 03/25/17 Range/Units 14:21 WBC (4.3-11.1) K/mcL RBC (3.82-4.97) M/mcL Hgb (11.5-15.4) g/dL Hct (35.3-44.9) % MCV (83.0-100.0) fL MCH (28.0-33.3) pg MCHC (31.6-35.5) g/dL RDW (11.5-14.5) % Plt Count (140-400) K/mcL MPV (9.4-12.4) fL Immature Gran % (0-4) % Seg Neutrophils % % Lymphocytes % % Monocytes % % Eosinophils % % Basophils % % Neutrophils # (1.6-8.9) K/mcL Lymphocytes # (0.6-4.6) K/mcL Monocytes # (0.0-1.3) K/mcL Eosinophils # (0.0-0.6) K/mcL Basophils # (0.0-0.2) K/mcL PT (9.4-12.1) Seconds INR APTT (26.0-36.0) Seconds Sample Site ABG pH (7.32-7.45) pH Units ABG pCO2 (35-45) mmHg ABG pO2 (85-104) mmHg ABG HCO3 (21-27) mEq/L ABG Total CO2 (20-26) mEq/L ABG O2 Saturation (95-98) % ABG Base Excess (-2 to 3) mEq/L Donnie Test O2 Delivery Device Sodium (136-145) mEq/L Potassium (3.5-5.1) mEq/L Chloride (98-107) mEq/L Carbon Dioxide (23-29) mEq/L BUN (6-20) mg/dL Creatinine (0.60-1.20) mg/dL Est GFR ( Amer) (> 60) Est GFR (Non-Af Amer) (> 60) BUN/Creatinine Ratio (6-26) Glucose (70-105) mg/dL Calculated Osmolality (280-300) Lactic Acid (0.5-2.2) mmol/L Calcium (8.6-10.3) mg/dL Phosphorus (2.7-4.5) mg/dL Magnesium (1.6-2.6) mg/dL Total Bilirubin (0.3-1.0) mg/dL Direct Bilirubin (0.0-0.2) mg/dL Indirect Bilirubin (0.0-1.2) mg/dL AST (13-39) Units/L ALT (7-52) Units/L Alkaline Phosphatase (34-104) Units/L Troponin I < 0.03 (< 0.04) ng/mL B-Natriuretic Peptide (Less than 100) pg/mL Serum Total Protein (6.4-8.9) g/dL Albumin (3.5-5.7) g/dL Globulin (2.4-3.5) g/dL Albumin/Globulin Ratio (1.1-2.2) Influenza Type A (PCR) (Negative) Influenza Type B (PCR) (Negative)
--- NOTE | 2017-03-25 16:27 | Pulmonology History & Physical ---
<Chris Lanier - Last Filed: 03/25/17 17:20> Date of Encounter: 03/25/17 Time of Encounter: 16:00 Assessment and Plan (1) SVC (superior vena cava obstruction) Current visit: Yes Status: Acute Patient has known history of SVC syndrome. Presented to ED with facial swelling and facial cyanosis. CT of chest demonstrated the following: -Pulmonary arteries could not be opacified, as there is new occlusion of the SVC stent. -There is new edema in the visualized lower neck. -Large R pleural effusion with near complete collapse of the right lung is similar to prior. -Right PleurX catheter is in unchanged position. -New, ground-glass opacity in the aerated portion of the right upper lung may reflect edema. Plan: -Observation in the ICU -Standard dose heparin drip -Repeat H+H -AM labs -Fentanyl drip for pain control History of Present Illness Chief complaint: Dyspnea HPI: Ms. Mcdaniels is a 46 year old female with PMH of adenocarcinoma of lung who presented to the ED with the chief complaint of dyspnes and facial cyanosis. Patient is s/p stent placement in her SVC and has been on lovenox, which has been increased recently. She was initially concerned that she was having an allergic reaction to her fentanyl patch. She was tachycardic and hypoxic on arrival. Condition was mildly improved with IV fluids. CT of the chest was performed to rule out PE. CT chest demonstrated SVC occlusion. IR was contacted; patient underwent direct catheter guided TPA and clot extraction. Subsequent improvement of facial cyanosis. as well as neck swelling. After her procedure, patient developed facial cyanosis and neck swelling again. IR was contacted; recommend agressive medical management at this point with standard dose heparin drip. Patient will be brought to the ICU for observation. Patient was seen and examined at bedside this afternoon. Patient is visibly distressed. Complains of pain in her face; face is notably swollen and discolored. Past Med Surg Social Fam HX - Past Medical History Medical history: cancer, other Psychiatric history: anxiety - Past Surgical History Surgical History: appendectomy - Social History Smoking Status: Former smoker Smokeless Tobacco Status: No Alcohol use: rarely Drug use: none Medications and Allergies Docusate [Colace] 100 mg PO BID #60 capsule 11/22/16 [Rx] Ondansetron HCl [Zofran] 4 mg PO Q4H PRN #30 tablet 11/22/16 [Rx] Prochlorperazine Maleate [Compazine] 10 mg PO Q6H PRN #30 tablet 11/22/16 [Rx] Omeprazole [PriLOSEC] 20 mg PO DAILY #30 cap 12/16/16 [Rx] Temazepam [Restoril] 15 - 30 mg PO HS PRN #60 capsule 12/24/16 [Rx] Folic Acid 1 mg PO DAILY #30 tablet 01/03/17 [Rx] Lactulose 15 ml PO BID PRN #300 mls 01/03/17 [Rx] Sennosides [Senna] 8.6 mg PO DAILY PRN #60 tablet 01/03/17 [Rx] Albuterol Neb [Proventil Neb] 2.5 mg IH Q4HR #60 vial.neb 02/12/17 [Rx] FentaNYL PATCH [Duragesic] 50 mcg TD Q72H #10 patch.td72 03/10/17 [Rx] HYDROmorphone [Dilaudid] 1 - 2 tab PO Q4HR PRN #120 tablet 03/10/17 [Rx] Dabrafenib Mesylate [Tafinlar] 75 mg PO DAILY 03/25/17 [History] Enoxaparin [Lovenox] 100 mg SQ DAILY 03/25/17 [History] FentaNYL PATCH [Duragesic] 25 mcg TD Q72H 03/25/17 [History] Trametinib Dimethyl Sulfoxide [Mekinist] 2 mg PO DAILY 03/25/17 [History] 3 Allergy/AdvReac Type Severity Reaction Status Date / Time No Known Allergies Allergy Verified 03/25/17 07:53 All Systems: A 10-system review of systems was performed and is negative for pertinent findings except as documented above in the HPI. - Constitutional Constitutional: as per HPI - EENT Nose, mouth and throat: facial pain, no dizziness - Cardiovascular Cardiovascular: dyspnea, no chest pain at rest, no chest pain with activity, no claudication, no diaphoresis, no irregular heart rhythm - Respiratory Respiratory: no wheezing Physical Examination Vital Signs: Vital Signs, Last 4 Hours Pulse Resp BP Pulse Ox 03/25/17 16:13 99 18 114/68 94 03/25/17 16:03 98 18 112/74 90 03/25/17 15:44 113 16 114/73 88 03/25/17 15:16 123 26 115/74 88 03/25/17 13:55 113 22 120/72 95 03/25/17 13:14 97 16 122/59 93 03/25/17 13:10 62 16 128/58 94 03/25/17 13:06 70 16 127/68 96 03/25/17 13:03 88 16 134/62 95 03/25/17 12:56 72 16 124/64 95 03/25/17 12:50 70 16 120/65 96 03/25/17 12:45 78 16 129/64 97 03/25/17 12:40 94 16 115/63 91 03/25/17 12:35 60 16 121/60 93 03/25/17 12:30 84 16 117/66 91 03/25/17 12:27 101 16 121/75 95 03/25/17 12:21 97 16 125/71 General appearance: appears uncomfortable Eyes: other (facial cyanosis) ENT: oropharynx moist Auscultation: bilateral: clear Cardiovascular: regular rate and rhythm Results - Laboratory Findings CBC and BMP: 03/25/17 08:09 03/25/17 08:09 ABG ABG pH 7.40 pH Units (7.32-7.45) 03/25/17 08:22 ABG pCO2 41 mmHg (35-45) 03/25/17 08:22 ABG pO2 155 mmHg (85-104) H 03/25/17 08:22 ABG O2 Saturation 99 % (95-98) H 03/25/17 08:22 PT/INR, D-dimer PT 13.0 Seconds (9.4-12.1) H 03/25/17 08:09 Abnormal lab findings: Abnormal lab results RBC 3.71 M/mcL (3.82-4.97) L 03/25/17 08:09 Hgb 10.9 g/dL (11.5-15.4) L 03/25/17 08:09 Hct 34.2 % (35.3-44.9) L 03/25/17 08:09 RDW 14.8 % (11.5-14.5) H 03/25/17 08:09 Plt Count 421 K/mcL (140-400) H 03/25/17 08:09 MPV 9.3 fL (9.4-12.4) L 03/25/17 08:09 Eosinophils # 0.7 K/mcL (0.0-0.6) H 03/25/17 08:09 PT 13.0 Seconds (9.4-12.1) H 03/25/17 08:09 ABG pO2 155 mmHg (85-104) H 03/25/17 08:22 ABG Total CO2 27 mEq/L (20-26) H 03/25/17 08:22 ABG O2 Saturation 99 % (95-98) H 03/25/17 08:22 Carbon Dioxide 22 mEq/L (23-29) L 03/25/17 08:09 BUN 5 mg/dL (6-20) L 03/25/17 08:09 Creatinine 0.52 mg/dL (0.60-1.20) L 03/25/17 08:09 Glucose 154 mg/dL (70-105) H 03/25/17 08:09 AST 9 Units/L (13-39) L 03/25/17 08:09 ALT 6 Units/L (7-52) L 03/25/17 08:09 Albumin 3.3 g/dL (3.5-5.7) L 03/25/17 08:09 Globulin 3.6 g/dL (2.4-3.5) H 03/25/17 08:09 Albumin/Globulin Ratio 0.9 (1.1-2.2) L 03/25/17 08:09 <Denzel Dickson W - Last Filed: 03/25/17 18:14> Date of Encounter: 03/25/17 History of Present Illness HPI: Ms. Mcdaniels is a 46 year old female All Systems: A 10-system review of systems was performed and is negative for pertinent findings except as documented above in the HPI. Results - Laboratory Findings CBC and BMP: 03/25/17 08:09 03/25/17 08:09 ABG ABG pH 7.40 pH Units (7.32-7.45) 03/25/17 08:22 ABG pCO2 41 mmHg (35-45) 03/25/17 08:22 ABG pO2 155 mmHg (85-104) H 03/25/17 08:22 ABG O2 Saturation 99 % (95-98) H 03/25/17 08:22 PT/INR, D-dimer PT 13.0 Seconds (9.4-12.1) H 03/25/17 08:09 Abnormal lab findings: Abnormal lab results RBC 3.71 M/mcL (3.82-4.97) L 03/25/17 08:09 Hgb 10.9 g/dL (11.5-15.4) L 03/25/17 08:09 Hct 34.2 % (35.3-44.9) L 03/25/17 08:09 RDW 14.8 % (11.5-14.5) H 03/25/17 08:09 Plt Count 421 K/mcL (140-400) H 03/25/17 08:09 MPV 9.3 fL (9.4-12.4) L 03/25/17 08:09 Eosinophils # 0.7 K/mcL (0.0-0.6) H 03/25/17 08:09 PT 13.0 Seconds (9.4-12.1) H 03/25/17 08:09 ABG pO2 155 mmHg (85-104) H 03/25/17 08:22 ABG Total CO2 27 mEq/L (20-26) H 03/25/17 08:22 ABG O2 Saturation 99 % (95-98) H 03/25/17 08:22 Carbon Dioxide 22 mEq/L (23-29) L 03/25/17 08:09 BUN 5 mg/dL (6-20) L 03/25/17 08:09 Creatinine 0.52 mg/dL (0.60-1.20) L 03/25/17 08:09 Glucose 154 mg/dL (70-105) H 03/25/17 08:09 AST 9 Units/L (13-39) L 03/25/17 08:09 ALT 6 Units/L (7-52) L 03/25/17 08:09 Albumin 3.3 g/dL (3.5-5.7) L 03/25/17 08:09 Globulin 3.6 g/dL (2.4-3.5) H 03/25/17 08:09 Albumin/Globulin Ratio 0.9 (1.1-2.2) L 03/25/17 08:09 - Attending Attestation I examined this patient and my medical decision-making was reviewed with the Resident Physician. I agree with the documented findings, disposition and treatment plan as described except to the extent set forth below. We independently had [id number] contact with the patient Patient seen and examined at bedside Labs, radiology, chart personally reviewed. 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 Do not suspect underlying pneumonia. She has acceptable oxygenation nasal cannula O2 at this time. Also noted was an acute PE on repeat CTA she is on high- intensity heparin. No clear evidence of right heart strain clinically or radiographically Cards: Blood pressure stable she is tachycardic related to pain and anxiety FEN-GI: Nothing by mouth for now Renal: No evidence of acute kidney injury continue to monitor urine output ID: No evidence of infectious process continue to monitor Heme/Onc: Patient with acute SVC syndrome s/t metastatic adenocarcinoma the lung with a history of SVC syndrome status post stent placement this has been complicated by in-stent thrombosis with additional SVC thrombosis which is new despite the use of anticoagulation with Lovenox she is status post catheter directed TPA administration and mechanical removal of clot this has been at least partially successful patient will need a monitored the ICU for hemorrhage risk with continuation of high-intensity heparin infusion. Monitor H&H and look for any signs of active bleeding. We will consult oncology in the morning for ongoing chemotherapy requirements Endo: Glucose Monitored Integ/MSK: Skin Care per routine ICU Nursing Protocol to prevent ulcers. Lines: All lines examined without evidence of infection : Dispo: ICU for close monitoring CODE: I had a lengthy discussion with with the patient and her along with a colleague from the critical care division at bedside in the ED and she did not want to pursue intubation in the event of worsening symptoms. at that time she was very clear to me and the emergency department nurse that she would not want intubation. Upon arrival ICU I discussed the case again with the patient her the ICU team at which point she said that she would be willing to undergo intubation in the event of worsening symptoms. Given that symptoms had worsened after thrombo-lysis I am concerned with the degree of stenosis being 80% that symptoms could recur and clinical course could decline rapidly. Unfortunately the level of expertise to handle such an event is likely outside of the ability of this facility overnight and I spoke with the patient and her family and they were in agreement to have transfer for this reason to [facility] (where she has been seen by Oncology) I spoke with the transfer center and they are arranging transfer (with accepting physician to call if confirmed).
[2017-03-25] MEDS: FentaNYL (PF) 1,000 MCG in 0.9 % Sodium Chloride 80 ML IVC SCH (18:00)
[2017-03-25] MEDS ORDERED: Sennosides/Docusate Sodium TABLET PO PRN ×2 (19:28→20:40)
[2017-03-25] MEDS: Lactulose Oral Soln 20 GM/30 ML UDC PO SCH (20:30)
[2017-03-25 23:44] LABS: Bilirubin,Urine Negative (Negative); Blood,Urine Negative (Negative); Clarity,Urine Clear (Clear); Color,Urine Yellow (Yellow); Glucose,Urine (UA) Normal (Normal); Ketones,Urine Negative (Negative); Protein,Urine Negative (Neg-Trace); Specific Gravity,Urine > 1.030 (1.010-1.025); Urobilinogen,Urine Normal (Normal)
[2017-03-25 23:45] LABS: Leukocyte Esterase,Urine Negative (Negative); Nitrite,Urine Negative (Negative)
[2017-03-26] MEDS ORDERED: *HR* HYDROmorphone 2 MG/ML SYRINGE IVP PRN
[2017-03-26] MEDS: *HR* HYDROmorphone 2 MG/ML SYRINGE IVP PRN ×10 (01:19→21:00)
[2017-03-26] MEDS ORDERED: Albuterol 2.5 MG/3 ML NEBULIZER IH PRN (06:03)
[2017-03-26] MEDS: Ondansetron 4 MG/2 ML VIAL IVP PRN ×3 (06:39→18:28)
[2017-03-26 07:11] LABS: Basophils % 0.3 %; Eosinophils # 0.6 K/mcL (0.0-0.6); Eosinophils % 3.7 %; Hematocrit 33.1 % (35.3-44.9); Hemoglobin 10.4 g/dL (11.5-15.4); Immature Granulocytes % 0.8 % (0-4); Lymphocytes # 1.1 K/mcL (0.6-4.6); Lymphocytes % 6.6 %; Mean Corpuscular HGB Conc 31.4 g/dL (31.6-35.5); Mean Corpuscular Hemoglobin 29.4 pg (28.0-33.3); Mean Corpuscular Volume 93.5 fL (83.0-100.0); Mean Platelet Volume 9.5 fL (9.4-12.4); Monocytes # 1.2 K/mcL (0.0-1.3); Monocytes % 7.5 %; Neutrophils # 12.9 K/mcL (1.6-8.9); Platelet Count 287 K/mcL (140-400); Red Blood Count 3.54 M/mcL (3.82-4.97); Segmented Neutrophils % 81.1 %
[2017-03-26 07:25] LABS: Alanine Aminotransferase 6 Units/L (7-52); Albumin 3.2 g/dL (3.5-5.7); Albumin/Globulin Ratio 0.8 (1.1-2.2); Alkaline Phosphatase 63 Units/L (34-104); Aspartate Amino Transferase 8 Units/L (13-39); BUN/Creatinine Ratio 18 (6-26); Bilirubin,Total 0.2 mg/dL (0.3-1.0); Blood Urea Nitrogen 8 mg/dL (6-20); Carbon Dioxide 24 mEq/L (23-29); Chloride 105 mEq/L (98-107); Globulin 3.9 g/dL (2.4-3.5); Glucose 103 mg/dL (70-105); Osmolality,Calculated 285 (280-300); Potassium 4.3 mEq/L (3.5-5.1); Sodium 138 mEq/L (136-145); Total Protein 7.1 g/dL (6.4-8.9); eGFR For African Americans > 60 (> 60); eGFR For Non-African Americans > 60 (> 60)
[2017-03-26 07:27] LABS: BUN/Creatinine Ratio 19 (6-26); Blood Urea Nitrogen 8 mg/dL (6-20); Calcium 9.1 mg/dL (8.6-10.3); Carbon Dioxide 24 mEq/L (23-29); Chloride 104 mEq/L (98-107); Glucose 103 mg/dL (70-105); Magnesium 1.8 mg/dL (1.6-2.6); Osmolality,Calculated 283 (280-300); Potassium 4.2 mEq/L (3.5-5.1); Sodium 137 mEq/L (136-145); eGFR For African Americans > 60 (> 60); eGFR For Non-African Americans > 60 (> 60)
[2017-03-26] MEDS: *HR* HYDROmorphone 4 MG TABLET PO SCH ×4 (08:00→19:50)
[2017-03-26] MEDS: Lactulose Oral Soln 20 GM/30 ML UDC PO SCH ×3 (08:02→19:51)
--- NOTE | 2017-03-26 08:05 | Pulmonology Progress Note ---
<RandolphDenzel W - Last Filed: 03/26/17 10:53> Date of Encounter: 03/26/17 Objective PUL Vital signs: Last Vital Signs Temp 97.6 F 03/26/17 07:42 Pulse 113 03/26/17 08:00 Resp 14 03/26/17 08:00 BP 108/81 03/26/17 08:00 Pulse Ox 95 03/26/17 08:00 Results - Laboratory Findings CBC and BMP: 03/26/17 06:33 03/26/17 06:33 ABG ABG pH 7.40 pH Units (7.32-7.45) 03/25/17 08:22 ABG pCO2 41 mmHg (35-45) 03/25/17 08:22 ABG pO2 155 mmHg (85-104) H 03/25/17 08:22 ABG O2 Saturation 99 % (95-98) H 03/25/17 08:22 PT/INR, D-dimer PT 13.0 Seconds (9.4-12.1) H 03/25/17 08:09 Abnormal lab findings: Abnormal lab results WBC 15.9 K/mcL (4.3-11.1) H 03/26/17 06:33 RBC 3.54 M/mcL (3.82-4.97) L 03/26/17 06:33 Hgb 10.4 g/dL (11.5-15.4) L 03/26/17 06:33 Hct 33.1 % (35.3-44.9) L 03/26/17 06:33 MCHC 31.4 g/dL (31.6-35.5) L 03/26/17 06:33 RDW 15.0 % (11.5-14.5) H 03/26/17 06:33 Neutrophils # 12.9 K/mcL (1.6-8.9) H 03/26/17 06:33 PT 13.0 Seconds (9.4-12.1) H 03/25/17 08:09 APTT 46.4 Seconds (26.0-36.0) H 03/26/17 06:33 Fibrinogen 454 mg/dL (169-393) H 03/25/17 18:15 ABG pO2 155 mmHg (85-104) H 03/25/17 08:22 ABG Total CO2 27 mEq/L (20-26) H 03/25/17 08:22 ABG O2 Saturation 99 % (95-98) H 03/25/17 08:22 Creatinine 0.43 mg/dL (0.60-1.20) L 03/26/17 06:33 POC Glucose 132 (58-89) H 03/25/17 17:23 Total Bilirubin 0.2 mg/dL (0.3-1.0) L 03/26/17 06:33 AST 8 Units/L (13-39) L 03/26/17 06:33 ALT 6 Units/L (7-52) L 03/26/17 06:33 Lactate Dehydrogenase 278 Units/L (140-271) H 03/25/17 18:15 Albumin 3.2 g/dL (3.5-5.7) L 03/26/17 06:33 Globulin 3.9 g/dL (2.4-3.5) H 03/26/17 06:33 Albumin/Globulin Ratio 0.8 (1.1-2.2) L 03/26/17 06:33 Ur Specific [place] > 1.030 (1.010-1.025) H 03/25/17 15:16 - Clinical Findings Intake & Output: Intake & Output 03/25/17 03/26/17 03/26/17 23:59 07:59 15:59 Intake Total 103 / 103 Output Total 250 / 250 450 / 450 Balance -147 / -147 -450 / -450 Weight 67.9 kg Consult Discharge Plan - Plan Referrals: Hemanth Gates Jr, MD [Primary Care Provider] - - Attending Attestation I examined this patient and my medical decision-making was reviewed with the Resident Physician. I agree with the documented findings, disposition and treatment plan as described except to the extent set forth below. We independently had [id number] contact with the patient Patient seen and examined at bedside Labs, radiology, chart personally reviewed. Management was reviewed during multidisciplinary critical care rounds. HAIR DESIGNER: Awake and alert. Severe pain adjusting Pulm: Hypoxia with acceptable oxygenation on nasal cannula o2. Acute PE on Heoarin. Chronic malignant pleural effusion with PleurX in place. Cards: Tachycardic (Sinus) FEN-GI: NPO for now excepts meds. Renal: No JADEN cont to monitor UOP. ID: No clear infection monitor Heme/Onc: SVC syndrome s/p clot extraction and tPA lysis. Symptoms seem to be modestly worse with regards to swelling. Cont high intensity heparin dosing. Oncology consulted. Endo: Glucose Monitored Integ/MSK: Skin Care per routine ICU Nursing Protocol to prevent ulcers. Lines: All lines examined without evidence of infection : Dispo: Likely transfer to [facility] for further evaluation. I had a long conversation with the patient her at bedside have also been tort consultation with the interventional radiology team at [facility] reviewing the films as he is acute intervention is warranted or if they can offer more to the patient at this time which would impact transfer for this reason. CODE: DNAR <Chris Lanier - Last Filed: 03/26/17 11:14> Date of Encounter: 03/26/17 Time of Encounter: 08:00 Assessment and Plan (1) SVC (superior vena cava obstruction) Current Visit: Yes Status: Acute Patient has known history of SVC syndrome. Presented to ED with facial swelling and facial cyanosis. CT of chest demonstrated the following: -Pulmonary arteries could not be opacified, as there is new occlusion of the SVC stent. -There is new edema in the visualized lower neck. -Large R pleural effusion with near complete collapse of the right lung is similar to prior. -Right PleurX catheter is in unchanged position. -New, ground-glass opacity in the aerated portion of the right upper lung may reflect edema. Plan: -Observation in the ICU -Standard dose heparin drip -For pain management, patient has been switched to Dilaudid 8 mg PO q4 H dante, then 2 mg IV for breakthrough pain -Likely transfer to [facility] -Senna and lactulose for constipation. Subjective Interval history: Patient was seen and examined at bedside this morning. Reports increased swelling in the right side of her face and neck. Also reports moderate pain in the lower right side of her chest. Patient is mildly distressed at the moment. Objective PUL Vital signs: Last Vital Signs Temp 97.6 F 03/26/17 07:42 Pulse 113 03/26/17 06:06 Resp 19 03/26/17 06:06 BP 118/76 03/26/17 06:06 Pulse Ox 95 03/26/17 06:06 General appearance: appears uncomfortable Eyes: nonicteric, other (Face is discolored; swelling present in face and neck) Neck: other (swelling, more prominent on the right) Effort: normal Cardiovascular: other (tachycardic) Musculoskeletal: no deformities normal mental status Results - Laboratory Findings CBC and BMP: 03/26/17 06:33 03/26/17 06:33 ABG ABG pH 7.40 pH Units (7.32-7.45) 03/25/17 08:22 ABG pCO2 41 mmHg (35-45) 03/25/17 08:22 ABG pO2 155 mmHg (85-104) H 03/25/17 08:22 ABG O2 Saturation 99 % (95-98) H 03/25/17 08:22 PT/INR, D-dimer PT 13.0 Seconds (9.4-12.1) H 03/25/17 08:09 Abnormal lab findings: Abnormal lab results WBC 15.9 K/mcL (4.3-11.1) H 03/26/17 06:33 RBC 3.54 M/mcL (3.82-4.97) L 03/26/17 06:33 Hgb 10.4 g/dL (11.5-15.4) L 03/26/17 06:33 Hct 33.1 % (35.3-44.9) L 03/26/17 06:33 MCHC 31.4 g/dL (31.6-35.5) L 03/26/17 06:33 RDW 15.0 % (11.5-14.5) H 03/26/17 06:33 Neutrophils # 12.9 K/mcL (1.6-8.9) H 03/26/17 06:33 PT 13.0 Seconds (9.4-12.1) H 03/25/17 08:09 APTT 46.4 Seconds (26.0-36.0) H 03/26/17 06:33 Fibrinogen 454 mg/dL (169-393) H 03/25/17 18:15 ABG pO2 155 mmHg (85-104) H 03/25/17 08:22 ABG Total CO2 27 mEq/L (20-26) H 03/25/17 08:22 ABG O2 Saturation 99 % (95-98) H 03/25/17 08:22 Creatinine 0.43 mg/dL (0.60-1.20) L 03/26/17 06:33 POC Glucose 132 (58-89) H 03/25/17 17:23 Total Bilirubin 0.2 mg/dL (0.3-1.0) L 03/26/17 06:33 AST 8 Units/L (13-39) L 03/26/17 06:33 ALT 6 Units/L (7-52) L 03/26/17 06:33 Lactate Dehydrogenase 278 Units/L (140-271) H 03/25/17 18:15 Albumin 3.2 g/dL (3.5-5.7) L 03/26/17 06:33 Globulin 3.9 g/dL (2.4-3.5) H 03/26/17 06:33 Albumin/Globulin Ratio 0.8 (1.1-2.2) L 03/26/17 06:33 Ur Specific Mcgraws > 1.030 (1.010-1.025) H 03/25/17 15:16 - Clinical Findings Intake & Output: Intake & Output 03/25/17 03/26/17 03/26/17 23:59 07:59 15:59 Intake Total 103 / 103 Output Total 250 / 250 450 / 450 Balance -147 / -147 -450 / -450 Weight 67.9 kg
[2017-03-26] MEDS ORDERED: Folic Acid 1 MG TABLET PO SCH (09:00)
[2017-03-26] MEDS ORDERED: *HR* Enoxaparin 100 MG/ML SYRINGE SQ SCH (09:00)
[2017-03-26] MEDS: Sennosides 8.6 MG TABLET PO SCH ×2 (10:43→19:51)
[2017-03-26] MEDS: FentaNYL (PF) 1,000 MCG in 0.9 % Sodium Chloride 80 ML IVC SCH ×2 (12:38→22:00)
[2017-03-26] MEDS: Heparin 25,000 UNIT/500 ML D5W 25,000 UNIT/500 ML BAG IVC SCH (12:39)
--- NOTE | 2017-03-26 17:20 | Electrocardiograph Report ---
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
[2017-03-26] MEDS: DABRAFENIB MESYLATE 75 MG PO SCH (18:41)
[2017-03-26] MEDS ORDERED: *HR* LORazepam 0.5 MG TABLET PO PRN (21:39)
[2017-03-27] MEDS: *HR* HYDROmorphone 2 MG/ML SYRINGE IVP PRN ×8 (00:08→18:57)
[2017-03-27] MEDS: *HR* HYDROmorphone 4 MG TABLET PO SCH ×5 (00:08→14:59)
[2017-03-27] MEDS ORDERED: *HR* HYDROmorphone (PF) 1 MG/ML SYRINGE ONE (02:53)
[2017-03-27] MEDS ORDERED: TRAMETINIB DIMETHYL SULFOXIDE 2 MG PO SCH (06:00)
[2017-03-27] MEDS: DABRAFENIB MESYLATE 75 MG PO SCH ×2 (06:17→17:45)
[2017-03-27] MEDS: Ondansetron 4 MG/2 ML VIAL IVP PRN ×4 (06:19→18:57)
[2017-03-27] MEDS: FentaNYL (PF) 1,000 MCG in 0.9 % Sodium Chloride 80 ML IVC SCH ×2 (07:01→15:10)
[2017-03-27] MEDS: Sennosides 8.6 MG TABLET PO SCH (07:04)
[2017-03-27] MEDS: Lactulose Oral Soln 20 GM/30 ML UDC PO SCH (07:04)
--- NOTE | 2017-03-27 07:24 | Pulmonology Progress Note ---
<Chris Lanier - Last Filed: 03/27/17 13:32> Date of Encounter: 03/27/17 Time of Encounter: 07:15 Assessment and Plan (1) SVC (superior vena cava obstruction) Current Visit: Yes Status: Acute Patient has known history of SVC syndrome. Presented to ED with facial swelling and facial cyanosis. CT of chest demonstrated the following: -Pulmonary arteries could not be opacified, as there is new occlusion of the SVC stent. -There is new edema in the visualized lower neck. -Large R pleural effusion with near complete collapse of the right lung is similar to prior. -Right PleurX catheter is in unchanged position. -New, ground-glass opacity in the aerated portion of the right upper lung may reflect edema. Plan: -Standard dose heparin drip -Dilaudid 8mg PO Q4HR; dilaudid 2mg IV Q2 PRN for breakthrough pain -Lactulose 20 g PO BID -Likely transfer to [facility] -Senna and lactulose for constipation. -Patients home cancer medications have been started. -Was seen by oncology this morning. Subjective Interval history: Patient was seen and examined at bedside this morning. Patient reports feeling much better than she did yesterday. No complaints at this time. Objective PUL Vital signs: Last Vital Signs Temp 97.9 F 03/27/17 04:40 Pulse 98 03/27/17 06:00 Resp 20 03/27/17 06:00 BP 118/71 03/27/17 06:00 Pulse Ox 95 03/27/17 06:00 General appearance: no acute distress Eyes: nonicteric ENT: oropharynx moist Auscultation: bilateral: clear Cardiovascular: regular rate and rhythm Integumentary: normal Extremities: no cyanosis Musculoskeletal: no deformities normal mental status mood appropriate, affect normal Results - Laboratory Findings CBC and BMP: 03/26/17 06:33 03/26/17 06:33 ABG ABG pH 7.40 pH Units (7.32-7.45) 03/25/17 08:22 ABG pCO2 41 mmHg (35-45) 03/25/17 08:22 ABG pO2 155 mmHg (85-104) H 03/25/17 08:22 ABG O2 Saturation 99 % (95-98) H 03/25/17 08:22 PT/INR, D-dimer PT 13.0 Seconds (9.4-12.1) H 03/25/17 08:09 Abnormal lab findings: Abnormal lab results WBC 15.9 K/mcL (4.3-11.1) H 03/26/17 06:33 RBC 3.54 M/mcL (3.82-4.97) L 03/26/17 06:33 Hgb 10.4 g/dL (11.5-15.4) L 03/26/17 06:33 Hct 33.1 % (35.3-44.9) L 03/26/17 06:33 MCHC 31.4 g/dL (31.6-35.5) L 03/26/17 06:33 RDW 15.0 % (11.5-14.5) H 03/26/17 06:33 Neutrophils # 12.9 K/mcL (1.6-8.9) H 03/26/17 06:33 PT 13.0 Seconds (9.4-12.1) H 03/25/17 08:09 APTT 81.8 Seconds (26.0-36.0) H 03/27/17 06:40 Fibrinogen 454 mg/dL (169-393) H 03/25/17 18:15 ABG pO2 155 mmHg (85-104) H 03/25/17 08:22 ABG Total CO2 27 mEq/L (20-26) H 03/25/17 08:22 ABG O2 Saturation 99 % (95-98) H 03/25/17 08:22 Creatinine 0.43 mg/dL (0.60-1.20) L 03/26/17 06:33 POC Glucose 132 (58-89) H 03/25/17 17:23 Total Bilirubin 0.2 mg/dL (0.3-1.0) L 03/26/17 06:33 AST 8 Units/L (13-39) L 03/26/17 06:33 ALT 6 Units/L (7-52) L 03/26/17 06:33 Lactate Dehydrogenase 278 Units/L (140-271) H 03/25/17 18:15 Albumin 3.2 g/dL (3.5-5.7) L 03/26/17 06:33 Globulin 3.9 g/dL (2.4-3.5) H 03/26/17 06:33 Albumin/Globulin Ratio 0.8 (1.1-2.2) L 03/26/17 06:33 Ur Specific [place] > 1.030 (1.010-1.025) H 03/25/17 15:16 - Clinical Findings Intake & Output: Intake & Output 03/26/17 03/26/17 03/27/17 15:59 23:59 07:59 Intake Total 240 / 507 315 / 315 590 / 590 Output Total 200 / 200 Balance 240 / 357 115 / 115 590 / 590 Weight 71.4 kg Consult Discharge Plan - Plan Referrals: Hemanth Gates Jr, MD [Primary Care Provider] - <Denzel Dickson W - Last Filed: 03/27/17 14:00> Date of Encounter: 03/27/17 Objective PUL Vital signs: Last Vital Signs Temp 98.4 F 03/27/17 08:33 Pulse 105 03/27/17 08:00 Resp 18 03/27/17 08:00 BP 104/72 03/27/17 08:00 Pulse Ox 97 03/27/17 08:00 Results - Laboratory Findings CBC and BMP: 03/27/17 09:38 03/27/17 09:38 ABG ABG pH 7.40 pH Units (7.32-7.45) 03/25/17 08:22 ABG pCO2 41 mmHg (35-45) 03/25/17 08:22 ABG pO2 155 mmHg (85-104) H 03/25/17 08:22 ABG O2 Saturation 99 % (95-98) H 03/25/17 08:22 PT/INR, D-dimer PT 13.0 Seconds (9.4-12.1) H 03/25/17 08:09 Abnormal lab findings: Abnormal lab results WBC 15.9 K/mcL (4.3-11.1) H 03/26/17 06:33 RBC 3.54 M/mcL (3.82-4.97) L 03/26/17 06:33 Hgb 10.4 g/dL (11.5-15.4) L 03/26/17 06:33 Hct 33.1 % (35.3-44.9) L 03/26/17 06:33 MCHC 31.4 g/dL (31.6-35.5) L 03/26/17 06:33 RDW 15.0 % (11.5-14.5) H 03/26/17 06:33 Neutrophils # 12.9 K/mcL (1.6-8.9) H 03/26/17 06:33 PT 13.0 Seconds (9.4-12.1) H 03/25/17 08:09 APTT 81.8 Seconds (26.0-36.0) H 03/27/17 06:40 Fibrinogen 454 mg/dL (169-393) H 03/25/17 18:15 ABG pO2 155 mmHg (85-104) H 03/25/17 08:22 ABG Total CO2 27 mEq/L (20-26) H 03/25/17 08:22 ABG O2 Saturation 99 % (95-98) H 03/25/17 08:22 Creatinine 0.43 mg/dL (0.60-1.20) L 03/26/17 06:33 POC Glucose 132 (58-89) H 03/25/17 17:23 Total Bilirubin 0.2 mg/dL (0.3-1.0) L 03/26/17 06:33 AST 8 Units/L (13-39) L 03/26/17 06:33 ALT 6 Units/L (7-52) L 03/26/17 06:33 Lactate Dehydrogenase 278 Units/L (140-271) H 03/25/17 18:15 Albumin 3.2 g/dL (3.5-5.7) L 03/26/17 06:33 Globulin 3.9 g/dL (2.4-3.5) H 03/26/17 06:33 Albumin/Globulin Ratio 0.8 (1.1-2.2) L 03/26/17 06:33 Ur Specific [place] > 1.030 (1.010-1.025) H 03/25/17 15:16 - Clinical Findings Intake & Output: Intake & Output 03/26/17 03/27/17 03/27/17 23:59 07:59 15:59 Intake Total 315 / 315 615 / 615 360 / 360 Output Total 200 / 200 Balance 115 / 115 615 / 615 360 / 360 Weight 71.4 kg - Attending Attestation I examined this patient and my medical decision-making was reviewed with the Resident Physician. I agree with the documented findings, disposition and treatment plan as described except to the extent set forth below. We independently had [id number] contact with the patient Impression: SVC syndrome Pulmonary Embolus Advance Lung Cancer Metastatic Pleural Effusion Cancer Related Pain Recs: Cont Heparing gtt Titrate Narcotics PleurX now. CTS consultation at [facility] Oncology Consulted Plan to Transfer to [facility] at [facility] All questions answered at bedside. DNAR
[2017-03-27] MEDS: Heparin 25,000 UNIT/500 ML D5W 25,000 UNIT/500 ML BAG IVC SCH ×2 (07:28→15:03)
--- NOTE | 2017-03-27 08:57 | Oncology Inp Consult Note ---
Date of Encounter: 03/26/17 Time of Encounter: 18:00 Assessment and Plan (1) SVC (superior vena cava obstruction) Status: Acute Assessment and plan: She had clot extraction and flow established 3 mL stent. This is still 80% block. Her facial edema is improving (2) Adenocarcinoma of right lung, stage 4 Status: Chronic Assessment and plan: She should have been B-PEYMAN positive at [facility] She is started on the combination Dabrafenib and Tremetinib. It is okay to start and she just received the pills around 03/25/2017. No major interaction with any medication including Lovenox She needs strict therapeutic anticoagulation. She understands when she goes home need to be on Lovenox twice a day one milligrams per KG which is roughly 70 mg subcutaneous twice a day he had even few averse without therapeutic anticoagulation can be detrimental for her. If necessary would add antiplatelet agents like aspirin or plavis Pleural effusion not draining well with the Pleurx catheter in its painful. This was discussed briefly at thoracic tumor Board this morning and I discussed with Dr. Barrientos over the phone Given long-term Pleurx catheter she is expected to have loculations. She needs a VATS procedure with removal of fluid and possible pleurodesis after that area but consult Dr. Marshall thoracic surgery - Data of Consult Patient: known to practice within the last 3 years Requesting Physician: Denzel Dickson MD Primary Care Provider: Hemanth Gates Jr, MD - Consult Narrative Reason for consult: Metastatic adenocarcinoma from lung History of present illness: Ms. Mcdaniels is a 46 year old female hospitalized with worsening of SVC syndrome for one day. Which was of breath. She went from Lovenox 70 mg twice a day 200 mg once a day just 2 days prior to the symptoms which could be a contributing factor Since admission she had an angiogram with the clock extraction and TPA. There was still 80% occlusion but flow was established. In CT angiogram chest 2017 showed 2 acute PE left upper lobe. Has a large right pleural effusion. Minimal flow through superior vena cava. Collapse of right lung Diagnosis: Stage IV adenocarcinoma from lung Imaging CT chest on 11/11/2016 showed upper lobe medially located 5.6 x 4.5 cm mass invading anterior mediastinum likely T4 lesion Has a 1.1 cm precarinal and 1.2 cm subcarinal lymph node it Large pleural effusion right side PET scan 11/20/2016 showed few sperm metastasis right side. Right pleural effusion. Right paratracheal and mediastinal lymph node including internal mammary lymph node. A small spot left of midline anterior chest wall area, otherwise she has no disease in the left chest abdomen or pelvis or head and neck area. MRI brain 11/19/2016 with and without contrast negative Procedures Bronchoscopy 11/13/[address] Jean-Baptiste showed right hilar adenopathy and biopsies of the mass and lymph node done. Also 1 L serosanguineous fluid removed from the right chest wall. Her shortness of breath has improved but still she decompensates with activity. She had pleurex placed. Draining every 2 days. 12/03/16 R pleural fluid positive for few atypical cells consistent with adenocarcinoma. She has pain in the right clavicle and scapular area. She has been taking Ultram with benefit. I offered stronger pain medication but she refused this is been controlling her is being anxious as well Last mammogram January 2015 was benign category 2 bilateral Her hormones are in the postmenopausal range Pathology Biopsy right paratracheal lymph node 11/13/2016 showed adenocarcinoma TTF-1 and CK 7 positive. Pleural fluid also showed malignant cells consistent with adenocarcinoma CEA and CK 7 positive. Estrogen receptors negative. CEA positive. JAM negative Discussed at tumor Board. May not have enough material for next generation sequencing. She had CT-guided needle biopsy of the lung mass on 11/28/2016. PDL1 expression high at 91-100% EGFR, K-john, ALK and ROS 1 all negative Treatment intent palliative Chemotherapy regimen Cycle repeated every 3 weeks Number of cycles: 4 Carboplatin AUC 5 day one (650 mg with creatinine clearance 105) Alimta 500 milligram per meter squared day 1 (940 mg) Pembrolizumab fixed dosing 200 mg IV day 1 Completed 4 cycles from 11/23/2016 to 02/03/2017 Palliative radiation to that right lung mass for impending SVC syndrome over 5 days from 01/20/2017 to 01/28/2017. Further imaging CT angiogram chest on 01/17/2017 showed no major response to the right upper lobe mass. It appears to compress right SVC. She is also symptomatic with some facial swelling but no engorged veins Also mildly prominent supraclavicular lymph node about 1.3 cm either side which was less prominent in the previous scans Also large right pleural effusion. She is draining about 250 mL every 6 days. She does have cough and pleuritic chest pain right side Dr. Jean-Baptiste drained 400 mL on 02/06/2017 and this was painful. Currently looks more hemorrhagic and used to be straw-colored. Progression of SVC syndrome CT angiogram chest 02/06/2017 showed thrombus in the SVC. Tumor versus blood clot. Discussed at tumor Board. She was very symptomatic with facial edema and subcutaneous edema in the chest wall Also discussed with Dr. Elio Gómez at interventional radiology. He managed to get a stent from [facility] and 12 x 60 and 14 x 40 mm stent She had a very good response and her facial edema has improved considerably We will treat her with the Decadron 4 mg twice a day for 4 days then 4 mg once a day for 5 days Second opinion She was evaluated at [facility] January 2017. CellCept assay sent. Subsequently evaluated at [facility] Dr. Lopes. She may qualify for phase 2 clinical trial with Glesatinib, Sitravatinib or Mocetinostat combination with nivolumab and advanced or metastatic non-small cell lung cancer for patients with prior immunotherapy exposure They have the Sitravatinib arm open.. MRI brain done at [facility] was negative for metastasis Meanwhile testing done at [facility] came back. Apparently she should be be BRAF positive. She was started on Trametinib 2 mg by mouth daily and Dabrafenib 150 mg by mouth twice a day starting 03/26/2017 Hematological history Acute extensive bilateral lower extremity DVT by venous Doppler 12/09/2016 She had significant erythema pain and tenderness left worse than the right lower extremity. D-dimer elevated at 36,000 Started on Lovenox 80 mg loading dose than 70 mg twice a day. Current weight 71 kg creatinine normal around 0.5 Her d-dimer has come down to 1600. At her Request I switched her to Elequis 5 mg by mouth twice a day starting . No pulmonary embolism by CT angiogram chest 01/17/2017 and again no pulmonary embolism by CT angiogram chest 02/06/2017 She developed new right upper extremity DVT as her SVC syndrome got worse. She is symptomatic with pain and swelling. He was switched back to Lovenox 70 mg subcutaneous twice a day starting 02/06/2017 Past Med Surg Social Fam HX - Past Medical History Medical history: cancer, other Psychiatric history: anxiety - Past Surgical History Surgical History: appendectomy - Social History Smoking Status: Former smoker Smokeless Tobacco Status: No Alcohol use: rarely Drug use: none Medications and Allergies Docusate [Colace] 100 mg PO BID #60 capsule 11/22/16 [Rx] Ondansetron HCl [Zofran] 4 mg PO Q4H PRN #30 tablet 11/22/16 [Rx] Prochlorperazine Maleate [Compazine] 10 mg PO Q6H PRN #30 tablet 11/22/16 [Rx] Omeprazole [PriLOSEC] 20 mg PO DAILY #30 cap 12/16/16 [Rx] Temazepam [Restoril] 15 - 30 mg PO HS PRN #60 capsule 12/24/16 [Rx] Folic Acid 1 mg PO DAILY #30 tablet 01/03/17 [Rx] Lactulose 15 ml PO BID PRN #300 mls 01/03/17 [Rx] Sennosides [Senna] 8.6 mg PO DAILY PRN #60 tablet 01/03/17 [Rx] Albuterol Neb [Proventil Neb] 2.5 mg IH Q4HR #60 vial.neb 02/12/17 [Rx] FentaNYL PATCH [Duragesic] 50 mcg TD Q72H #10 patch.td72 03/10/17 [Rx] HYDROmorphone [Dilaudid] 1 - 2 tab PO Q4HR PRN #120 tablet 03/10/17 [Rx] Dabrafenib Mesylate [Tafinlar] 75 mg PO DAILY 03/25/17 [History] Enoxaparin [Lovenox] 100 mg SQ DAILY 03/25/17 [History] FentaNYL PATCH [Duragesic] 25 mcg TD Q72H 03/25/17 [History] Trametinib Dimethyl Sulfoxide [Mekinist] 2 mg PO DAILY 03/25/17 [History] 3 Allergy/AdvReac Type Severity Reaction Status Date / Time No Known Allergies Allergy Verified 03/25/17 07:53 Review of systems: Shortness of breath has improved since admission. Face swelling is improving. No chest pain. No major lower extremity edema. Still maintaining weight Oncology - Exam - Constitutional Vitals: Temp Pulse Resp BP Pulse Ox 98.4 F 105 18 104/72 97 03/27/17 08:33 03/27/17 08:00 03/27/17 08:00 03/27/17 08:00 03/27/17 08:00 Exam: GENERAL: Alert and oriented, well appearing. Facial swelling with some subcutaneous edema in the chest Mental Status: Affect appropriate for circumstances HEENT: Sclerae anicteric. No mucositis or thrush. No other oral or pharyngeal lesions or erythema. Skin: No rashes or petechiae. No evidence of skin malignancy Lymph nodes: No cervical, supraclavicular, axillary, or inguinal adenopathy. Lungs: Air entry decreased right lung Cardiovascular: Regular rate and rhythm. No skipped beats Abdomen: Soft, nontender; no organomegaly or masses palpable. Extremities: No edema. No calf swelling or tenderness. No joint deformity. Neurologic: Alert, cranial nerves II-XII intact; normal gait; no focal weakness or sensory abnormalities Consult Discharge Plan - Plan Referrals: Hemanth Gates Jr, MD [Primary Care Provider] -
[2017-03-27 09:51] LABS: Basophils % 0.4 %; Eosinophils # 0.6 K/mcL (0.0-0.6); Eosinophils % 6.2 %; Hematocrit 29.3 % (35.3-44.9); Hemoglobin 9.4 g/dL (11.5-15.4); Immature Granulocytes % 0.6 % (0-4); Lymphocytes # 0.8 K/mcL (0.6-4.6); Lymphocytes % 7.7 %; Mean Corpuscular HGB Conc 32.1 g/dL (31.6-35.5); Mean Corpuscular Hemoglobin 30.4 pg (28.0-33.3); Mean Corpuscular Volume 94.8 fL (83.0-100.0); Mean Platelet Volume 9.1 fL (9.4-12.4); Monocytes # 0.8 K/mcL (0.0-1.3); Monocytes % 7.9 %; Neutrophils # 7.5 K/mcL (1.6-8.9); Platelet Count 240 K/mcL (140-400); Red Blood Count 3.09 M/mcL (3.82-4.97); Red Cell Distribution Width 15.1 % (11.5-14.5); Segmented Neutrophils % 77.2 %
[2017-03-27 10:13] LABS: Magnesium 1.6 mg/dL (1.6-2.6); Phosphorous 2.9 mg/dL (2.7-4.5)
[2017-03-27 10:14] LABS: Alanine Aminotransferase 6 Units/L (7-52); Albumin 3.1 g/dL (3.5-5.7); Albumin/Globulin Ratio 1.1 (1.1-2.2); Alkaline Phosphatase 58 Units/L (34-104); Aspartate Amino Transferase 7 Units/L (13-39); BUN/Creatinine Ratio 15 (6-26); Bilirubin,Total 0.2 mg/dL (0.3-1.0); Blood Urea Nitrogen 9 mg/dL (6-20); Calcium 8.5 mg/dL (8.6-10.3); Carbon Dioxide 28 mEq/L (23-29); Chloride 99 mEq/L (98-107); Globulin 2.9 g/dL (2.4-3.5); Glucose 130 mg/dL (70-105); Osmolality,Calculated 276 (280-300); Potassium 4.1 mEq/L (3.5-5.1); Sodium 133 mEq/L (136-145); eGFR For African Americans > 60 (> 60); eGFR For Non-African Americans > 60 (> 60)
[2017-03-27 18:01] VITALS: BP 119/74
[2017-03-27] MEDS ORDERED: *HR* HYDROmorphone 2 MG/ML SYRINGE IVP ONE (18:49)
== END 2017-03-27 19:35 | disposition other institution (70) | DRG 315 ==
LOC: EMEROO 07:38 → ICNU 16:25 → INTOOBSV 16:25 → ICNU 17:10
PROVIDERS: ADMIT Internal Medicine Hospice and Palliative Medicine; ATTEND Internal Medicine Hospice and Palliative Medicine

== ENCOUNTER 2017-09-24 10:07 | Inpatient (IN) ==
[2017-09-24] MEDS ORDERED: *HR* FentaNYL (PF) 100 MCG/2 ML VIAL IVP PRN ×2 (11:08→16:41)
[2017-09-24] MEDS ORDERED: *HR* HYDROmorphone 4 MG TABLET PO PRN (11:11)
[2017-09-24] MEDS ORDERED: FentaNYL (PF) 1,000 MCG in 0.9 % Sodium Chloride 80 ML IVC SCH (11:15)
[2017-09-24] MEDS ORDERED: Naloxone 0.4 MG/ML INJ IVP PRN ×2 (11:34→15:06)
[2017-09-24] MEDS ORDERED: FentaNYL (PF) 2,500 MCG in EMPTY BAG 1 EACH IVC SCH ×3 (11:45→18:37)
[2017-09-24] MEDS ORDERED: Glycopyrrolate 0.2 MG/ML VIAL IVP PRN (14:03)
[2017-09-24] MEDS ORDERED: Albuterol 2.5 MG/3 ML NEBULIZER IH PRN (14:11)
[2017-09-24] MEDS ORDERED: Bisacodyl 10 MG RECTAL SUPPOSITORY RC PRN (14:11)
[2017-09-24] MEDS ORDERED: Atropine Sulfate 1% 40 DROP/2 ML BOTTLE SL PRN (14:11)
[2017-09-24] MEDS ORDERED: Artificial Tears SOLN 15 ML BOTTLE BOTH EYES PRN (14:17)
[2017-09-24] MEDS: Ketamine 500 MG in 0.9 % Sodium Chloride 250 ML IVC SCH (14:36)
[2017-09-24] MEDS ORDERED: Methadone Oral Concentrate 10 MG/ML PO SCH (15:04)
--- NOTE | 2017-09-24 15:09 | Internal Med History&Physical ---
Date of Encounter: 09/24/17 Time of Encounter: 14:30 Internal Medicine - H&P: HPI Chief complaint: metastatic lung cancer, for palliative care History of present illness: Ms. Mcdaniels is a 47 year old female with PMHx of metastatic lung cancer was transferred to [facility] from [facility] for palliative measures as per patient's wish. She is currently comfortable and chatting with her family members. Does not endorse significant pain, nausea, vomiting, constipation, or SOB. She has been on ketamine gtt at [facility] which Dr. Morillo has taken over. Past Med Surg Social Fam HX - Past Medical History Attestation: Yes The following information was validated with the patient. Medical history: cancer, pulmonary embolus Additional medical history: Lung Cancer Psychiatric history: anxiety - Past Surgical History Surgical History: appendectomy, breast surgery Additional surgical history: tubal ligation - colonoscopy - Social History Smoking Status: Former smoker Smokeless Tobacco Status: No Alcohol use: none, rarely Drug use: none - Family History Mother Family Member Ethnicity: Living Status: Still Living Hx Family Cardiac Disorders: Yes (afib) Father Living Status: Cause of : st. 5 lung cancer Hx Family Cancer: Yes (lung) Internal Medicine - H&P: Meds Albuterol Neb [Proventil Neb] 2.5 mg IH Q6HR PRN 09/24/17 [History] Calcium Carbonate 650 mg PO QID PRN 09/24/17 [History] Dexamethasone [Decadron] 12 mg PO DAILY@1400 09/24/17 [History] Dexamethasone [Decadron] 16 mg PO QAM 09/24/17 [History] Docusate [Colace] 200 mg PO BID 09/24/17 [History] Enoxaparin [Lovenox] 70 mg SQ DAILY 09/24/17 [History] Fentanyl Citrate/Pf [Fentanyl 1,000 Mcg/20 ml Syrng] 400 mcg IV CONT 09/24/17 [ History] Furosemide [Lasix] 20 mg PO DAILY PRN 09/24/17 [History] Glycerin [Sani-Supp] 1 each RC DAILY PRN 09/24/17 [History] Ketamine [Ketamine] 15 mg IV CONT 09/24/17 [History] LORazepam [Lorazepam] 0.5 mg IJ Q6H PRN 09/24/17 [History] Lactulose [Enulose] 20 gm PO TIDWM 09/24/17 [History] Lidocaine/Prilocaine CREAM [Emla] 5 gm TP QID PRN 09/24/17 [History] Methadone 30 mg PO Q8HR 09/24/17 [History] Mexiletine HCl 200 mg PO Q8HR 09/24/17 [History] Naloxone [Narcan] 0.1 mg IV AD PRN 09/24/17 [History] Ondansetron [Zofran] 4 mg PO Q8HR PRN 09/24/17 [History] Pantoprazole Sodium [Protonix] 40 mg PO DAILY 09/24/17 [History] Polyethylene Glycol 3350 [MiraLAX] 17 gm PO DAILY PRN 09/24/17 [History] Prochlorperazine Maleate [Compazine] 10 mg PO Q6HR PRN 09/24/17 [History] Sennosides [Laxative] 17.2 mg PO QID PRN 09/24/17 [History] Sotalol [Betapace] 80 mg PO Q12HR 09/24/17 [History] Sucralfate [Carafate] 1 gm PO QIDAC 09/24/17 [History] Sulfamethoxazole/Trimeth [Bactrim] 20 ml PO 3XW 09/24/17 [History] clonazePAM [Klonopin] 1.5 mg PO QAM 09/24/17 [History] clonazePAM [Klonopin] 2 mg PO HS 09/24/17 [History] guaiFENesin [Guaifenesin] 200 mg PO Q4H PRN 09/24/17 [History] 3 Allergy/AdvReac Type Severity Reaction Status Date / Time No Known Allergies Allergy Verified 03/25/17 07:53 All Systems PM: A 10-system review of systems was performed and is negative for pertinent findings except as documented above in the HPI. - Constitutional General appearance: Present: cachectic, pleasant, no acute distress - Head Head exam: Present: atraumatic, normal inspection - Eye Pupils: Present: PERRL - Respiratory Respiratory exam: Present: decreased breath sounds - Cardiovascular Additional comments: S1S2 - GI/Abdominal GI/Abdominal exam: Present: soft, no peritoneal signs - Extremities Exam Extremities exam: Present: normal capillary refill, normal inspection - Neurological Exam Neurological exam: Present: alert, no focal deficits - Psychiatric Psychiatric exam: Present: normal affect, normal mood - Skin Skin exam: Present: intact, normal color - Assessment and plan (1) Adenocarcinoma of right lung, stage 4 Current Visit: No Status: Chronic Assessment and plan: For palliative measure On ketamine gtt per Dr. Morillo symptomatic mx for SOB, nausea, constipation, increased secretion (2) Anxiety Current Visit: No Status: Chronic Assessment and plan: On benzodiazepine. (3) DVT prophylaxis Current Visit: No Status: Acute Assessment and plan: Subcutaneous Lovenox - Time Spent With Patient Total time spent is greater than 50% in coordination of care (as documented) at patient's floor/unit and/or counseling patient:
--- NOTE | 2017-09-24 15:14 | Anesthesia Progress Note ---
Date of Encounter: 09/24/17 Time of Encounter: 14:59 Anesthesia Note - Note Note: 09/24/17 14:59 Paige is a 47 yo female with metastatic NSCLC with intractable pain. She was transferred to [facility] today, from [facility], at her request to be closer to home. She is currently palliative care only with no clinical treatment left available for her. I did speak with her physician at [facility], Dr Wheat, this morning to review her treatment plans up to this point. I have agreed to manage the pain medications and anti-anxiety medications. She is admitted to the hospitalists group for management of all other issues. On arrival, she appears comfortable. She is awake, alert and oriented. She denies pain currently. She has been started on all her medications. I have kept her Ketamine infusion at 15mg/hr and have started a Fentanyl drip at 400mcg/hr. This is in lieu of a STUCCO MASON, which we do not have available at this time. She has bolus doses of Fentanyl ordered for BTP. We will continue her Klonopin, Ativan, Benadryl, Methadone, Mexitil, and Dilaudid. I have asked her to let us know if her pain control is adequate and if it is not , we will adjust medications as needed. The patient and her both wish to eventually go to their home and receive care there until her . I have asked Social Work, Adonay Angel, to begin working on setting up Hospice or other home health coverage. I will discuss this case with Dr. Trip Fregoso, our interim palliative/hospice care physician, and assist him in the care of this patient at home if he so desires.
[2017-09-24] MEDS ORDERED: *HR* Methadone 5 MG TABLET PO SCH (16:00)
--- NOTE | 2017-09-24 16:39 | Palliative - Consult Note ---
Date of Encounter: 09/24/17 Time of Encounter: 15:00 - Assessment and Plan (1) Cancer associated pain Current Visit: Yes Status: Acute Assessment and plan: Mrs Mcdaniels has metastatic NSCLC with intractable pain. Current pain medications are being managed by Pain Management Dr. Armaan Morillo. Ketamine infusion at 15mg /hr and a Fentanyl drip at 400mcg/hr. She has bolus doses of Fentanyl ordered for BTP. In addition, her Klonopin, Ativan, Benadryl, Methadone, Mexitil, and Dilaudid have been ordered. Patient is currently comfortable. (2) Anxiety Current Visit: No Status: Chronic Assessment and plan: Ativan 1mg PRN. (3) Constipation due to opioid therapy Current Visit: No Status: Acute Assessment and plan: Patient is receiving an aggressive bowel regimen. Last reported BM was last evening. She is tolerating po intake. (4) Nausea Current Visit: No Status: Acute Assessment and plan: Zofran prn (5) Adenocarcinoma of right lung, stage 4 Current Visit: No Status: Chronic Assessment and plan: Patient is DNRCC - Comfort care and is being managed for intractable cancer pain. Her goals are to transition home to spend quality time with her family before her . Adonay Angel and I conducted a beside meeting to discuss this transition. The patient is currently receiving IV infusions for pain and I have requested that the IV team assess the patient for a more suitable IV access for home transition. The patient agrees to this and I have discussed the case with Imani Polk RN and she will assess the patient for line placement tomorrow. I explained the pain regimen and the patient agrees to the current plan. I reviewed her medications for BTP and her bowels have been moving. Her appetite is good and she denies dysuria. The plan is to discuss home transition with [facility] with Dr. Fregoso as well as hospice staff tomorrow morning. Dr. Morillo will be managing the patients pain control. Palliative-CN HPI - Data of Consult Patient: new to practice Consult date: 09/24/17 Requesting Physician: Efraín Tinajero MD Primary Care Provider: Hemanth Gates Jr, MD - Consult Narrative Palliative Care/Comfort Measures: Palliative care Reason for consult: symptom management History of present illness: Ms. Mcdaniels is a 47 yo female with metastatic NSCLC with intractable pain. She was transferred to the [facility] palliative care unit from [facility], at her request to be closer to home. She is currently palliative care only with no clinical treatment left available for her. On arrival, she reports being comfortable. She is awake, alert and oriented. She denies pain currently. She has been started on all her medications. Dr. Morillo will overseeing her pain regimen and the palliative care team will provide symptom management as well as working the patient to transfer home with hospice care. The patient is a DNRCC - Comfort Care. He is at bedside. She has family arriving tomorrow from [place] and will continue planning a home transfer if possible. CC: Efraín Tinajero MD Past Med Surg Social Fam HX - Past Medical History Source: patient, old records reviewed, obtained from family Medical history: cancer, pulmonary embolus Additional medical history: Lung Cancer Psychiatric history: anxiety - Past Surgical History Surgical History: appendectomy, breast surgery Additional surgical history: tubal ligation - colonoscopy - Social History Smoking Status: Former smoker Smokeless Tobacco Status: No Alcohol use: none, rarely Drug use: none Current living situation: Home Recent Out of Country Travel Within the Last 8 Weeks: No Exposure or Possible Exposure to Illness During Travel: No - Family History Mother Family Member Ethnicity: Living Status: Still Living Hx Family Cardiac Disorders: Yes (afib) Father Living Status: Cause of : st. 5 lung cancer Hx Family Cancer: Yes (lung) Medications and Allergies Albuterol Neb [Proventil Neb] 2.5 mg IH Q6HR PRN 09/24/17 [History] Calcium Carbonate 650 mg PO QID PRN 09/24/17 [History] Dexamethasone [Decadron] 12 mg PO DAILY@1400 09/24/17 [History] Dexamethasone [Decadron] 16 mg PO QAM 09/24/17 [History] Docusate [Colace] 200 mg PO BID 09/24/17 [History] Enoxaparin [Lovenox] 70 mg SQ DAILY 09/24/17 [History] Fentanyl Citrate/Pf [Fentanyl 1,000 Mcg/20 ml Syrng] 400 mcg IV CONT 09/24/17 [ History] Furosemide [Lasix] 20 mg PO DAILY PRN 09/24/17 [History] Glycerin [Sani-Supp] 1 each RC DAILY PRN 09/24/17 [History] Ketamine [Ketamine] 15 mg IV CONT 09/24/17 [History] LORazepam [Lorazepam] 0.5 mg IJ Q6H PRN 09/24/17 [History] Lactulose [Enulose] 20 gm PO TIDWM 09/24/17 [History] Lidocaine/Prilocaine CREAM [Emla] 5 gm TP QID PRN 09/24/17 [History] Methadone 30 mg PO Q8HR 09/24/17 [History] Mexiletine HCl 200 mg PO Q8HR 09/24/17 [History] Naloxone [Narcan] 0.1 mg IV AD PRN 09/24/17 [History] Ondansetron [Zofran] 4 mg PO Q8HR PRN 09/24/17 [History] Pantoprazole Sodium [Protonix] 40 mg PO DAILY 09/24/17 [History] Polyethylene Glycol 3350 [MiraLAX] 17 gm PO DAILY PRN 09/24/17 [History] Prochlorperazine Maleate [Compazine] 10 mg PO Q6HR PRN 09/24/17 [History] Sennosides [Laxative] 17.2 mg PO QID PRN 09/24/17 [History] Sotalol [Betapace] 80 mg PO Q12HR 09/24/17 [History] Sucralfate [Carafate] 1 gm PO QIDAC 09/24/17 [History] Sulfamethoxazole/Trimeth [Bactrim] 20 ml PO 3XW 09/24/17 [History] clonazePAM [Klonopin] 1.5 mg PO QAM 09/24/17 [History] clonazePAM [Klonopin] 2 mg PO HS 09/24/17 [History] guaiFENesin [Guaifenesin] 200 mg PO Q4H PRN 09/24/17 [History] 3 Allergy/AdvReac Type Severity Reaction Status Date / Time No Known Allergies Allergy Verified 03/25/17 07:53 All systems: reviewed and no additional remarkable complaints except as stated ( abdominal tenderness, bloating, belching) - Constitutional Constitutional ROS PAL: fatigue - Musculoskeletal Musculoskeletal ROS IM: arthralgias - Integumentary Additional comments: Pleurx catheter intact. Dressing CDI. Palliative Care-Exam - Constitutional Vitals: Temp Pulse Resp BP Pulse Ox 97.8 F 83 22 109/68 93 07/25/18 15:10 09/24/17 15:10 09/24/17 15:10 09/24/17 15:10 09/24/17 15:10 General appearance: Present: cooperative, no acute distress - Head Head Exam: Present: atraumatic, normal inspection, normocephalic - Eye Eye exam: Present: PERRL Pupils: Present: PERRL - ENT ENT exam: Present: mucous membranes moist - Neck Neck exam: Present: full ROM - Respiratory Respiratory exam: Present: chest wall tenderness, decreased breath sounds - Expanded Respiratory Exam Location: decreased breath sounds: Left, Right, Lower - Cardiovascular Cardiovascular exam: Present: RRR, +S1, +S2 - Expanded Cardiovascular Exam Peripheral pulses: 1+: Femoral (L) PM, Femoral (R) PM, Posterior Tibialis (L), Posterior Tibialis (R), 2+: Carotid (L) PM, Carotid (R) PM, Radial (L), Radial ( R), Dorsalis Pedis (L) PM, Dorsalis Pedis (R) PM - GI/Abdominal Exam GI/Abdominal exam: Present: distended, soft - Rectal Rectal exam: Present: deferred - Expanded Upper Extremities Exam Upper Arm exam: Present: full ROM Forearm wrist exam: Present: full ROM - Expanded Lower Extremities Exam Upper Leg exam: Present: full ROM Lower Leg exam: Present: full ROM - Neurological Exam Neurological exam: Present: alert, oriented X3 - Expanded Neurological Exam Patient oriented to: Present: person, place, time Coma Scale Eye Opening: Spontaneous Coma Scale Motor Response: Obeys Commands Coma Scale Verbal Response: Oriented Coma Scale Total: 15 - Skin Skin exam: Present: intact, normal color Consult Discharge Plan - Plan Referrals: Hemanth Gates Jr, MD [Primary Care Provider] - Palliative Quality Palliative Quality: Screen for Code Status: Yes, Screen for Goals of Care: Yes, Screen for Pain: Yes, If Pain Regimen Started, Initiate Bowel Regimen: Yes, Screen for Nausea/Vomitting: Yes Code Status: 09/24/17 15:06 Resuscitation Status: Active [RES] Routine Comment: Resuscitation Status: DNR-Comfort Care
[2017-09-24] MEDS: Lactulose Oral Soln 20 GM/30 ML UDC PO SCH (16:45)
[2017-09-24] MEDS: *HR* HYDROmorphone 2 MG/ML SYRINGE IVP PRN (17:52)
[2017-09-24] MEDS: *HR* LORazepam 2 MG/ML VIAL IVP PRN (18:12)
[2017-09-24] MEDS: *HR* FentaNYL (PF) 100 MCG/2 ML VIAL IVP PRN ×4 (18:49→22:36)
[2017-09-24] MEDS: FENTANYL IVC SCH (20:36)
[2017-09-24] MEDS: Sennosides 8.6 MG TABLET PO SCH (22:41)
[2017-09-24] MEDS: clonazePAM 1 MG TABLET PO SCH (22:41)
[2017-09-25] MEDS: FENTANYL IVC SCH ×5 (02:21→23:59)
[2017-09-25] MEDS: *HR* FentaNYL (PF) 100 MCG/2 ML VIAL IVP PRN ×14 (02:22→23:29)
[2017-09-25] MEDS: *HR* LORazepam 2 MG/ML VIAL IVP PRN (07:51)
[2017-09-25] MEDS: clonazePAM 1 MG TABLET PO SCH (08:01)
[2017-09-25] MEDS: Sennosides 8.6 MG TABLET PO SCH ×2 (08:01→22:24)
[2017-09-25] MEDS: *HR* Enoxaparin 80 MG/0.8 ML SYRINGE SQ SCH (08:02)
[2017-09-25] MEDS: Lactulose Oral Soln 20 GM/30 ML UDC PO SCH ×3 (08:02→17:00)
[2017-09-25] MEDS ORDERED: *HR* Methadone 10 MG TABLET PO SCH ×2 (09:00→21:00)
[2017-09-25] MEDS: *HR* HYDROmorphone 2 MG/ML SYRINGE IVP PRN ×4 (09:33→21:06)
--- NOTE | 2017-09-25 09:53 | Palliative Progress Note ---
Date of Encounter: 09/25/17 Time of Encounter: 09:30 - Assessment and plan (1) Cancer associated pain Current Visit: Yes Status: Acute Assessment and plan: Patient utilized hourly dose of 400 mcg for BTP. Discussed with Dr. Morillo. Plan to discuss with family and adjust as needed. (2) Anxiety Current Visit: No Status: Chronic Assessment and plan: Utilized 2 doses of 1mg doses. (3) Constipation due to opioid therapy Current Visit: No Status: Acute Assessment and plan: Patient with no BM x 3 days as reported now by family. Patient distended and firm. Will give dose of Miralax and suppository today. Continue to monitor. (4) Nausea Current Visit: No Status: Acute Assessment and plan: Zofran PRN. No doses given in past 24 hrs. (5) Adenocarcinoma of right lung, stage 4 Current Visit: No Status: Chronic - Time Spent With Patient Total time spent is greater than 50% in coordination of care (as documented) at patient's floor/unit and/or counseling patient: 25 - 35 minutes - Subjective Interval history: Patient with uneventful night. Family reports no BM now x 3 days. Miralax will be given as well as suppository. Patient with diminished bowel sounds. Denies nausea. Utilized hourly doses of Fentanyl for BTP. Case discussed with Dr. Morillo. - Constitutional General appearance: Present: no acute distress - Head Head exam: Present: atraumatic, normal inspection - Eye Eye exam: Present: PERRL - ENT ENT exam: Present: mucous membranes moist - Respiratory Respiratory exam: Present: decreased breath sounds - Expanded Respiratory Exam Location: decreased breath sounds: Left, Right, Lower - Cardiovascular Cardiovascular exam: Present: RRR, +S1, +S2 - GI/Abdominal GI/Abdominal exam: Present: diminished bowel sounds, distended, firm Additional comments: No BM x 3 days - Extremities Exam Extremities exam: Present: full ROM - Neurological Exam Neurological exam: Present: alert, oriented X3 - Psychiatric Psychiatric exam: Present: normal affect - Skin Skin exam: Present: intact, warm Additional comments: pleurx catheter intact Palliative Quality Palliative Quality: Screen for Code Status: Yes, Screen for Goals of Care: Yes, Screen for Pain: Yes, If Pain Regimen Started, Initiate Bowel Regimen: Yes, Screen for Nausea/Vomitting: Yes Code Status: 09/24/17 15:06 Resuscitation Status: Active [RES] Routine Comment: Resuscitation Status: DNR-Comfort Care Consult Discharge Plan - Plan Referrals: Hemanth Gates Jr, MD [Primary Care Provider] -
--- NOTE | 2017-09-25 11:31 | Anesthesia Progress Note ---
Date of Encounter: 09/25/17 Time of Encounter: 10:30 Anesthesia Note - Note Note: 09/25/17 11:19 Patient had significant pain controll problems earlier in the evening on 09-24. Her Fentanyl drip was increased to 800mcg per hour along with 400mcg every 1 hour. She did well through the night but took her BTP meds every hour. Ativan iv helped but did make her sleepy. Her reports she has not had a Bowel movement in almost 3 days. Today she is complaining of some abdominal pain and distention as well as pain over the right lateral and anterior thorax. On exam, she is awake and oriented. She reports some thoracic pain as noted. Her lungs are clear, heart is regular. Her abdomen is distended without bowel sounds. She has mild tenderness with abdominal palpation. Her legs remain edematous. A long discussion was held with the patient and her regarding treatment options. I discussed being unable to make her completely pain free and still conscious. I discussed tolerance to the narcotics. I discussed the narcotic and ketamine shortages. We discussed Hospice and the possibility they may remain in the hospital. I asked them to remain open minded as we try alternatives to control her pain and minimize tolerance so that we have treatment options in the future. I did tell them at some point in this treatment plan, we will be facing the patient being sedated and non responsive. I will increase her Methadone to 35mg q 8hrs, schedule the Ativan 0.5mg iv q 8 hours. She will need magnesium citrate today for constipation. We will leave everything else the same for now.
[2017-09-25] MEDS: *HR* LORazepam 2 MG/ML VIAL IVP SCH ×2 (14:24→22:31)
[2017-09-25] MEDS: Gabapentin 100 MG CAPSULE PO SCH ×2 (14:24→22:24)
[2017-09-25] MEDS: *HR* Methadone 10 MG TABLET PO SCH ×2 (14:24→22:24)
--- NOTE | 2017-09-25 15:14 | Anesthesia Progress Note ---
Date of Encounter: 09/25/17 Time of Encounter: 15:11 Anesthesia Note - Note Note: 09/25/17 15:11 There was a meeting today with Hospice, Palliative care, Vadime, administration , pharmacy and social work. Good discussion was had on how to handle the situation with Paige. Tentative plan is to bring the Hospice nurses in for additional training on Friday and then transfer the patient to home on Hospice either Friday night or Friday.
--- NOTE | 2017-09-25 16:37 | Internal Med Progress Note ---
Date of Encounter: 09/25/17 Time of Encounter: 16:35 - Assessment and plan (1) Cancer associated pain Current Visit: Yes Status: Acute Assessment and plan: Patient on intensive pain medication regimen intravenously being managed by anesthesia and palliative care. (2) Adenocarcinoma of right lung, stage 4 Current Visit: Yes Status: Chronic Assessment and plan: Plan to transition to hospice on Friday or Friday. Continue supportive care in the meantime. Pain control (3) Anxiety Current Visit: Yes Status: Chronic Assessment and plan: Symptoms are well controlled. (4) DVT prophylaxis Current Visit: Yes Status: Acute Assessment and plan: On subcutaneous Lovenox - Time Spent With Patient Total time spent is greater than 50% in coordination of care (as documented) at patient's floor/unit and/or counseling patient: - Subjective Interval history: Evaluated patient earlier this morning. Her pain is well controlled with current intravenous pain medication regimen. No other complaints at this time. - Constitutional Vitals: Temp Pulse Resp BP Pulse Ox 98.2 F 78 16 112/72 96 09/25/17 07:15 09/25/17 07:15 09/25/17 07:15 09/25/17 07:15 09/25/17 07:15 General appearance: Present: cachectic, A&O X 3, pleasant, no acute distress, answers questions appropriately - Respiratory Respiratory exam: Present: CTAB. Absent: accessory muscle use, rales, rhonchi, wheezes - Cardiovascular Cardiovascular exam: Present: RRR, +S1, +S2. Absent: diastolic murmur, gallop, rubs, systolic murmur - Extremities Exam Extremities exam: Present: warm, radial pulses palpable and symmetrical. Absent : calf tenderness, cyanotic Consult Discharge Plan - Plan Referrals: Hemanth Gates Jr, MD [Primary Care Provider] -
[2017-09-25] MEDS: Ketamine 500 MG in 0.9 % Sodium Chloride 250 ML IVC SCH (23:30)
[2017-09-26] MEDS: *HR* HYDROmorphone 2 MG/ML SYRINGE IVP PRN ×3 (00:45→13:09)
[2017-09-26] MEDS: *HR* FentaNYL (PF) 100 MCG/2 ML VIAL IVP PRN ×6 (02:40→12:51)
[2017-09-26] MEDS ORDERED: *HR* FentaNYL (PF) 100 MCG/2 ML VIAL IVP ONE (02:45)
[2017-09-26] MEDS: FENTANYL IVC SCH ×5 (06:18→21:36)
[2017-09-26] MEDS: Ondansetron 4 MG/2 ML VIAL IVP PRN (06:45)
[2017-09-26] MEDS ORDERED: GI Cocktail 40 ML EACH PO ONE (06:50)
[2017-09-26] MEDS: Lactulose Oral Soln 20 GM/30 ML UDC PO SCH ×3 (07:58→17:47)
[2017-09-26] MEDS ORDERED: Bisacodyl 10 MG RECTAL SUPPOSITORY RC PRN (08:00)
[2017-09-26] MEDS: Sennosides 8.6 MG TABLET PO SCH ×2 (08:05→21:22)
[2017-09-26] MEDS: *HR* Methadone 10 MG TABLET PO SCH ×3 (08:06→21:18)
[2017-09-26] MEDS: Gabapentin 100 MG CAPSULE PO SCH ×3 (08:06→21:13)
[2017-09-26] MEDS: *HR* LORazepam 2 MG/ML VIAL IVP SCH ×3 (08:09→21:15)
[2017-09-26] MEDS: *HR* Enoxaparin 80 MG/0.8 ML SYRINGE SQ SCH (08:12)
--- NOTE | 2017-09-26 11:19 | Palliative Progress Note ---
Date of Encounter: 09/26/17 Time of Encounter: 10:30 - Assessment and plan (1) Cancer associated pain Current Visit: Yes Status: Acute Assessment and plan: Patient utilized hourly dose of 400 mcg for BTP. Discussed with Pharmacist. Plan to discuss with Ilia ROONEY and adjust as needed. (2) Anxiety Current Visit: Yes Status: Chronic Assessment and plan: Ativan now scheduled TID. Had one additional PRN dose. Tolerating well. (3) Constipation due to opioid therapy Current Visit: No Status: Acute Assessment and plan: Patient had moderate BM this AM. Reports being more comfortable at present. (4) Nausea Current Visit: No Status: Acute Assessment and plan: Zofran PRN. One dose in past 24 hrs. (5) Adenocarcinoma of right lung, stage 4 Current Visit: Yes Status: Chronic - Time Spent With Patient Total time spent is greater than 50% in coordination of care (as documented) at patient's floor/unit and/or counseling patient: 25 - 35 minutes - Subjective Interval history: Patient with uneventful night. Patient up ambulating in [place] without issue. at bedside. - Constitutional Vitals: Stable. General appearance: Present: no acute distress - Head Head exam: Present: atraumatic, normal inspection - Eye Eye exam: Present: PERRL Pupils: Present: PERRL - Neck Neck exam: Present: full ROM - Respiratory Respiratory exam: Present: decreased breath sounds - Expanded Respiratory Exam Location: decreased breath sounds: Left, Right, Lower - Cardiovascular Cardiovascular exam: Present: RRR, +S1, +S2 - GI/Abdominal GI/Abdominal exam: Present: distended, normal bowel sounds, soft - Extremities Exam Extremities exam: Present: full ROM - Neurological Exam Neurological exam: Present: alert, oriented X3 - Psychiatric Psychiatric exam: Present: normal affect Palliative Quality Palliative Quality: Screen for Code Status: Yes, Screen for Goals of Care: Yes, Screen for Pain: Yes, If Pain Regimen Started, Initiate Bowel Regimen: Yes, Screen for Nausea/Vomitting: Yes Code Status: 09/24/17 15:06 Resuscitation Status: Active [RES] Routine Comment: Resuscitation Status: DNR-Comfort Care Consult Discharge Plan - Plan Referrals: Hemanth Gates Jr, MD [Primary Care Provider] -
--- NOTE | 2017-09-26 13:26 | Event Note ---
Date of Encounter: 09/26/17 Time of Encounter: 12:00 Conducted bedside meeting with patient and family. Adonay Angel, Candy Cutter Machine and Swathi Oneal RN present. Discussed patients goals of care for home hospice. Patient and family desires patient to transition home as soon as possible. Discussed hospice agency needs and that [facility] would be unable to facilitate her home hospice transition. Family disappointed but willing to transition to another hospice agency is available. Adonay Angel discussed other agencies and will contact them for possible referral. Patient emotional and Jhonathan requested to be contacted first for conversations. Will continue to work on home placement with hospice care.
--- NOTE | 2017-09-26 14:11 | Internal Med Progress Note ---
Date of Encounter: 09/26/17 Time of Encounter: 12:00 - Assessment and plan (1) Cancer associated pain Current Visit: Yes Status: Acute Assessment and plan: Continue management per anesthesia and palliative care with ketamine, fentanyl and Dilaudid. (2) Adenocarcinoma of right lung, stage 4 Current Visit: Yes Status: Chronic Assessment and plan: Poor prognosis. Patient is on comfort care. Palliative care looking to arrange for home hospice. (3) Anxiety Current Visit: Yes Status: Chronic Assessment and plan: Continue Ativan (4) DVT prophylaxis Current Visit: Yes Status: Acute Assessment and plan: On Lovenox. - Time Spent With Patient Total time spent is greater than 50% in coordination of care (as documented) at patient's floor/unit and/or counseling patient: - Subjective Interval history: Patient is awake and alert. Comfortable. Pain is under control. No new complaints at this time. - Constitutional Vitals: Temp Pulse Resp BP Pulse Ox 99.6 F 78 19 110/67 93 09/26/17 07:46 09/26/17 07:46 09/26/17 07:46 09/26/17 07:46 09/26/17 08:35 General appearance: Present: cachectic, A&O X 3, pleasant, no acute distress, answers questions appropriately - Respiratory Respiratory exam: Present: CTAB. Absent: accessory muscle use, rales, rhonchi, wheezes - Cardiovascular Cardiovascular exam: Present: RRR, +S1, +S2. Absent: diastolic murmur, gallop, rubs, systolic murmur - GI/Abdominal GI/Abdominal exam: Present: normal bowel sounds, soft, no peritoneal signs. Absent: distended, tenderness - Extremities Exam Extremities exam: Present: warm, radial pulses palpable and symmetrical. Absent : calf tenderness, cyanotic, pedal edema Consult Discharge Plan - Plan Referrals: Hemanth Gates Jr, MD [Primary Care Provider] -
[2017-09-26] MEDS ORDERED: FENTANYL IVC PRN (15:10)
[2017-09-26] MEDS: *HR* HYDROmorphone 20 MG/20 ML PCA IVC PRN (16:45)
[2017-09-26] MEDS: FENTANYL IVC PRN (16:46)
--- NOTE | 2017-09-26 17:53 | Anesthesia Progress Note ---
Date of Encounter: 09/26/17 Time of Encounter: 15:30 Anesthesia Note - Note Note: 09/26/17 17:46 Patient is doing well, has been up walking, visiting with family. Reports pain is tolerable but still taking Fentanyl BTP meds every hour. Taking scheduled Ativan. Family disappointed that [facility] will not take her. She reports the EMLA cream is helping some. Will make minor adjustments to her meds: increase continuous infusion to 1200mcg /hr and allow 200mcg BTP q 1hour along with Dilaudid. Friday, we will increase her Neurontin dosage. I did meet with outside Hospice and they may be willing to take patient, pending their ability to get Ketamine. Their clinical specialist medical device is an anesthesiologist and is not uncomfortable dealing with these meds or the doses she is on. I don't expect transfer to that hospice until early next week if they can take her. If they do not accept, we will keep her here and provide palliative care.
[2017-09-26] MEDS: Ketamine 500 MG in 0.9 % Sodium Chloride 250 ML IVC SCH (21:13)
[2017-09-27] MEDS: FENTANYL IVC SCH ×3 (01:02→18:04)
[2017-09-27] MEDS: *HR* Enoxaparin 80 MG/0.8 ML SYRINGE SQ SCH ×2 (05:49→18:02)
[2017-09-27] MEDS: Sennosides 8.6 MG TABLET PO SCH ×2 (08:18→22:16)
[2017-09-27] MEDS: Lactulose Oral Soln 20 GM/30 ML UDC PO SCH ×4 (08:18→18:23)
[2017-09-27] MEDS: *HR* Methadone 10 MG TABLET PO SCH ×3 (08:18→22:16)
[2017-09-27] MEDS: Gabapentin 100 MG CAPSULE PO SCH ×3 (08:18→22:16)
[2017-09-27] MEDS: *HR* LORazepam 2 MG/ML VIAL IVP SCH ×3 (08:19→22:17)
--- NOTE | 2017-09-27 10:02 | Internal Med Progress Note ---
Date of Encounter: 09/27/17 Time of Encounter: 08:45 - Assessment and plan (1) Cancer associated pain Current Visit: Yes Status: Acute Assessment and plan: Continue current management with ketamine, fentanyl and Dilaudid. Working on making arrangements through [facility] for patient to be able to go home with hospice. (2) Adenocarcinoma of right lung, stage 4 Current Visit: Yes Status: Chronic Assessment and plan: Poor prognosis. Currently on comfort care. Awaiting transitioning to home hospice (3) Anxiety Current Visit: Yes Status: Chronic Assessment and plan: Continue Ativan (4) DVT prophylaxis Current Visit: Yes Status: Acute Assessment and plan: On Lovenox - Time Spent With Patient Total time spent is greater than 50% in coordination of care (as documented) at patient's floor/unit and/or counseling patient: - Subjective Interval history: Patient is awake. Doing well from a pain control standpoint. Is awaiting arrangements for placement to hospice. - Constitutional Vitals: Temp Pulse Resp BP Pulse Ox 98.2 F 82 18 108/70 95 09/26/17 19:13 09/26/17 19:13 09/26/17 19:13 09/26/17 19:13 09/26/17 19:13 General appearance: Present: cachectic, A&O X 3, pleasant, no acute distress, answers questions appropriately - Neurological Exam Neurological exam: Present: alert, oriented X3, no focal deficits, strengths equal and symetr throughout. Absent: facial droop, speech deficit Consult Discharge Plan - Plan Referrals: Hemanth Gates Jr, MD [Primary Care Provider] -
[2017-09-27] MEDS: *HR* HYDROmorphone 20 MG/20 ML PCA IVC PRN (15:07)
[2017-09-27] MEDS: FENTANYL IVC PRN (19:45)
[2017-09-27] MEDS: Ketamine 500 MG in 0.9 % Sodium Chloride 250 ML IVC SCH (23:58)
[2017-09-28] MEDS: FENTANYL IVC SCH ×4 (00:20→23:50)
[2017-09-28] MEDS: *HR* Enoxaparin 80 MG/0.8 ML SYRINGE SQ SCH ×2 (05:59→18:16)
[2017-09-28] MEDS: *HR* Methadone 10 MG TABLET PO SCH ×3 (08:57→21:32)
[2017-09-28] MEDS: Sennosides 8.6 MG TABLET PO SCH ×2 (08:58→21:29)
[2017-09-28] MEDS: Gabapentin 100 MG CAPSULE PO SCH ×3 (08:59→21:33)
[2017-09-28] MEDS: Lactulose Oral Soln 20 GM/30 ML UDC PO SCH ×3 (08:59→18:16)
[2017-09-28] MEDS: *HR* LORazepam 2 MG/ML VIAL IVP SCH ×3 (09:00→21:27)
[2017-09-28] MEDS: Ketamine 500 MG in 0.9 % Sodium Chloride 250 ML IVC SCH ×2 (11:35→23:50)
--- NOTE | 2017-09-28 15:19 | Internal Med Progress Note ---
Date of Encounter: 09/28/17 Time of Encounter: 15:17 - Assessment and plan (1) Cancer associated pain Current Visit: Yes Status: Acute Assessment and plan: Continue management with ketamine, fentanyl and Dilaudid. Palliative care will reevaluate patient tomorrow and see if he can make arrangements for patient to go home with hospice. (2) Adenocarcinoma of right lung, stage 4 Current Visit: Yes Status: Chronic Assessment and plan: Poor prognosis. Patient is DNR comfort care (3) Anxiety Current Visit: Yes Status: Chronic Assessment and plan: On Ativan. (4) DVT prophylaxis Current Visit: Yes Status: Acute Assessment and plan: On Lovenox - Time Spent With Patient Total time spent is greater than 50% in coordination of care (as documented) at patient's floor/unit and/or counseling patient: - Subjective Interval history: Patient is doing well. Currently somnolent. Pain and anxiety symptoms are well controlled. - Constitutional Vitals: Temp Pulse Resp BP Pulse Ox 97.8 F 77 18 115/72 90 09/28/17 11:28 09/28/17 11:28 09/28/17 11:28 09/28/17 11:28 09/28/17 11:28 General appearance: Present: cachectic, pleasant, no acute distress, answers questions appropriately Exam: Patient is currently somnolent. Appears comfortable - Respiratory Respiratory exam: Present: CTAB. Absent: accessory muscle use, rales, rhonchi, wheezes - Cardiovascular Cardiovascular exam: Present: RRR, +S1, +S2. Absent: diastolic murmur, gallop, rubs, systolic murmur Consult Discharge Plan - Plan Referrals: Hemanth Gates Jr, MD [Primary Care Provider] -
[2017-09-28] MEDS: *HR* HYDROmorphone 20 MG/20 ML PCA IVC PRN (18:16)
[2017-09-29] MEDS: FENTANYL IVC PRN ×2 (00:13→22:26)
[2017-09-29] MEDS: *HR* Enoxaparin 80 MG/0.8 ML SYRINGE SQ SCH ×2 (06:20→18:29)
[2017-09-29] MEDS: FENTANYL IVC SCH ×3 (07:14→23:58)
[2017-09-29] MEDS: Lactulose Oral Soln 20 GM/30 ML UDC PO SCH ×3 (08:19→17:33)
[2017-09-29] MEDS: Sennosides 8.6 MG TABLET PO SCH ×2 (08:20→21:25)
[2017-09-29] MEDS: Gabapentin 100 MG CAPSULE PO SCH ×3 (08:20→21:26)
[2017-09-29] MEDS: *HR* Methadone 10 MG TABLET PO SCH ×3 (08:22→21:26)
[2017-09-29] MEDS: *HR* LORazepam 2 MG/ML VIAL IVP SCH ×3 (08:22→21:26)
--- NOTE | 2017-09-29 09:34 | Palliative Progress Note ---
Date of Encounter: 09/29/17 Time of Encounter: 09:30 - Assessment and plan (1) Cancer associated pain Current Visit: Yes Status: Acute Assessment and plan: Patient doing well on current infusions of Fentanyl/Ketamine. Greatly appreciate Dr. Morillo's management. Continue and monitor. [facility] working with home infusion company to prepare medications for discharge. (2) Constipation due to opioid therapy Current Visit: No Status: Acute Assessment and plan: Continue current laxatives Lactulose/Senna/Dulcolax/Colace with Miralax PRN. (3) Anxiety Current Visit: Yes Status: Chronic Assessment and plan: Continue scheduled Lorazepam, pt has not required any breakthrough doses over the weekend. (4) Counseling regarding advanced care planning and goals of care Current Visit: Yes Status: Acute (5) Adenocarcinoma of right lung, stage 4 Current Visit: Yes Status: Chronic - Time Spent With Patient Total time spent is greater than 50% in coordination of care (as documented) at patient's floor/unit and/or counseling patient: 25 - 35 minutes - Subjective Interval history: Patient awake and alert - sitting up on edge of bed. Stated she had a good night and pain well controlled. Only complaint is edema of left leg, which at bedside states she has intermittently and takes Furosemide/K+ at home until this improves. Appetite good, no nausea/vomiting, + BM. Chart reviewed - no medications have been adjusted this weekend. [facility] here and will be meeting with pt/family for continued discharge planning. - Constitutional General appearance: Present: no acute distress - Respiratory Respiratory exam: Present: decreased breath sounds, CTAB - Cardiovascular Cardiovascular exam: Present: +S1, +S2 - GI/Abdominal GI/Abdominal exam: Present: distended, soft - Extremities Exam Additional comments: 2+ pitting edema left leg - Neurological Exam Neurological exam: Present: alert, oriented X3, strengths equal and symetr throughout - Skin Skin exam: Present: dry, warm Palliative Quality Palliative Quality: Screen for Code Status: Yes, Screen for Goals of Care: Yes, Screen for Pain: Yes, If Pain Regimen Started, Initiate Bowel Regimen: Yes, Screen for Nausea/Vomitting: Yes Code Status: 09/24/17 15:06 Resuscitation Status: Active [RES] Routine Comment: Resuscitation Status: DNR-Comfort Care Consult Discharge Plan - Plan Referrals: Hemanth Gates Jr, MD [Primary Care Provider] -
[2017-09-29] MEDS ORDERED: Furosemide 20 MG TABLET PO ONE (10:27)
[2017-09-29] MEDS ORDERED: Ammonium Lactate 30 APPL/225 GM BOTTLE TP PRN (13:18)
--- NOTE | 2017-09-29 13:54 | Anesthesia Progress Note ---
Date of Encounter: 09/29/17 Time of Encounter: 13:42 Anesthesia Note - Note Note: 09/29/17 13:42 I have met with Palliative Care and Social Work today. I have written the prescriptions for the Fentanyl, Ketamine and TRANSFER MACHINE OPERATOR. I also discussed case with Dr. Quintana (director product). I did let Dr. Quintana know he could contact me with questions as her condition changes. On exam, patient is awake and oriented. She is very happy that she is going home. Family is in the room. VSS, lungs clear and heart regular. She does not appear to be having any medication side effects at this time. She is expected to transfer to Hospice today. We will continue current therapy.
[2017-09-29] MEDS: *HR* HYDROmorphone 20 MG/20 ML PCA IVC PRN (15:53)
--- NOTE | 2017-09-29 17:56 | Internal Med Progress Note ---
Hospitalist Progress Note - Encounter Date of Encounter: 09/29/17 Time of Encounter: 17:54 - Subjective Interval History: pt was seen and exmained at bed side She is tearful with burning pain in her both axilla Otherwise her general body pains are tolerable with current regimen - Exam Vitals: Temp Pulse Resp BP Pulse Ox 98.5 F 80 16 122/74 94 09/29/17 08:10 09/29/17 08:10 09/29/17 08:10 09/29/17 08:10 09/29/17 08:10 Exam: Gen: A, A, O x3 Chest: Diminished BS b/l, no crackles, no wheezing, Heart: S1S2+ Tachy+ Abd: Sofr Skin: Macerated skin with mild erythema noticed in b/l axilla - Assessment and Plan (1) Anxiety Current Visit: Yes Status: Chronic Assessment and Plan: On Ativan. (2) Adenocarcinoma of right lung, stage 4 Current Visit: Yes Status: Chronic Assessment and Plan: Poor prognosis. Patient is DNR comfort care Scheduled to go home in AM under hospice care (3) DVT prophylaxis Current Visit: Yes Status: Acute Assessment and Plan: On Lovenox (4) Cancer associated pain Current Visit: Yes Status: Acute Assessment and Plan: Continue management with ketamine, fentanyl and Dilaudid. Palliative care team arranging for home pain medications (5) Armpit pain Current Visit: Yes Status: Acute Assessment and Plan: due to fungal inf will use nystatin cream as well as emla cream PRN - Time Spent with Patient Total time spent is greater than 50% in coordination of care (as documented) at patient's floor/unit and/or counseling patient: Consult Discharge Plan - Plan Referrals: Hemanth Gates Jr, MD [Primary Care Provider] -
[2017-09-29] MEDS: Nystatin Cream 15 GM TUBE TP SCH (21:27)
[2017-09-30] MEDS: *HR* Enoxaparin 80 MG/0.8 ML SYRINGE SQ SCH ×2 (05:06→18:03)
[2017-09-30] MEDS: Ondansetron 4 MG/2 ML VIAL IVP PRN ×2 (08:17→15:20)
[2017-09-30] MEDS: *HR* LORazepam 2 MG/ML VIAL IVP SCH ×3 (08:22→23:29)
[2017-09-30] MEDS: Sennosides 8.6 MG TABLET PO SCH ×2 (08:23→21:37)
[2017-09-30] MEDS: Gabapentin 100 MG CAPSULE PO SCH ×3 (08:23→21:38)
[2017-09-30] MEDS: Lactulose Oral Soln 20 GM/30 ML UDC PO SCH ×3 (08:23→16:40)
[2017-09-30] MEDS: *HR* Methadone 10 MG TABLET PO SCH ×3 (08:23→21:38)
[2017-09-30] MEDS: Nystatin Cream 15 GM TUBE TP SCH ×2 (08:23→23:38)
[2017-09-30] MEDS: Ketamine 500 MG in 0.9 % Sodium Chloride 250 ML IVC SCH (08:54)
[2017-09-30] MEDS: FENTANYL IVC SCH (08:55)
[2017-09-30] MEDS ORDERED: Furosemide 20 MG TABLET PO ONE (10:00)
--- NOTE | 2017-09-30 10:59 | Discharge Summary ---
- NOTES TO OUTPATIENT PROVIDER Notes to Outpatient Provider: Discharged to home hospice, care per hospice educator Date of Encounter: 09/30/17 Time of Encounter: 10:54 - Discharge Diagnosis (1) Anxiety Priority: Secondary Status: Chronic (2) Adenocarcinoma of right lung, stage 4 Priority: Secondary Status: Chronic (3) DVT prophylaxis Priority: Primary Status: Acute (4) Cancer associated pain Priority: Primary Status: Acute (5) Armpit pain Priority: Primary Status: Acute Qualifiers: Laterality: right Qualified Code(s): M79.621 - Pain in right upper arm Hospital course: Ms. Mcdaniels is a 47 year old female with PMHx of metastatic lung cancer was transferred to [facility] from [facility] for palliative measures as per patient's wish. She is currently comfortable and chatting with her family members. Did endorse significant pain during hospital stay, no nausea, vomiting, constipation, or SOB. She has been on ketamine gtt at [facility] which Dr. Morillo has taken over. Patient was started on intensive pain medication regimen intravenously being managed by anesthesia and palliative care. She is seen and evaluated at the bedside with family this a.m, and is clincally ready to be discharged on home hospice All controlled substances that are being given have been prescribed by the pain physician Discharged to home hospice Discharge discussed with: patient, family, nurse, case management, showroom consultant - Time Spent with Patient Total time spent providing and/or coordinating discharge services: Greater than 30 minutes (50 minutes spent on chart review, patient encounter, discussion with palliative, med rec and documentation) - Discharge Medications Home Medications: Albuterol Neb [Proventil Neb] 2.5 mg IH Q6HR PRN 09/24/17 [History] Calcium Carbonate 650 mg PO QID PRN 09/24/17 [History] Dexamethasone [Decadron] 12 mg PO DAILY@1400 09/24/17 [History] Dexamethasone [Decadron] 16 mg PO QAM 09/24/17 [History] Docusate [Colace] 200 mg PO BID 09/24/17 [History] Enoxaparin [Lovenox] 70 mg SQ BID 09/24/17 [History] Fentanyl Citrate/Pf [Fentanyl 1,000 Mcg/20 ml Syrng] 400 mcg IV CONT 09/24/17 [ History] Furosemide [Lasix] 20 mg PO DAILY PRN 09/24/17 [History] Glycerin [Sani-Supp] 1 each RC DAILY PRN 09/24/17 [History] Ketamine [Ketamine] 15 mg IV CONT 09/24/17 [History] LORazepam [Lorazepam] 0.5 mg IJ Q6H PRN 09/24/17 [History] Lactulose [Enulose] 20 gm PO TIDWM 09/24/17 [History] Lidocaine/Prilocaine CREAM [Emla] 5 gm TP QID PRN 09/24/17 [History] Methadone 30 mg PO Q8HR 09/24/17 [History] Mexiletine HCl 200 mg PO Q8HR 09/24/17 [History] Naloxone [Narcan] 0.1 mg IV AD PRN 09/24/17 [History] Ondansetron [Zofran] 4 mg PO Q8HR PRN 09/24/17 [History] Pantoprazole Sodium [Protonix] 40 mg PO DAILY 09/24/17 [History] Polyethylene Glycol 3350 [MiraLAX] 17 gm PO DAILY PRN 09/24/17 [History] Prochlorperazine Maleate [Compazine] 10 mg PO Q6HR PRN 09/24/17 [History] Sennosides [Laxative] 17.2 mg PO QID PRN 09/24/17 [History] Sotalol [Betapace] 80 mg PO Q12HR 09/24/17 [History] Sucralfate [Carafate] 1 gm PO QIDAC 09/24/17 [History] Sulfamethoxazole/Trimeth [Bactrim] 20 ml PO 3XW 09/24/17 [History] clonazePAM [Klonopin] 1.5 mg PO QAM 09/24/17 [History] clonazePAM [Klonopin] 2 mg PO HS 09/24/17 [History] guaiFENesin [Guaifenesin] 200 mg PO Q4H PRN 09/24/17 [History] Glycopyrrolate [Robinul] 0.2 mg IVP Q4H PRN vial 09/30/17 [Rx] Nystatin Cream [Mycostatin Cream] 1 appl TP BID tube 09/30/17 [Rx] Allergies/Adverse Reactions: 3 Allergy/AdvReac Type Severity Reaction Status Date / Time No Known Allergies Allergy Verified 03/25/17 07:53 Date of admission: 09/24/17 12:26 Primary care physician: Hemanth Gates Jr, MD Consults: 09/24/17 15:07 Consult to Anesthesiology [CONS] Routine Consulting Provider: Anesthesia Tania Reason for Consult: palliative pain mx, Dr. Morillo notified. Call Completed: Yes 09/24/17 17:08 Consult to Palliative Care [CONS] Routine Comment: Consulting Provider: Palliative Care Tania Reason for Consult: pain Call Completed: Yes 09/25/17 12:13 Consult to Invasive Line Access Team [CONS] Routine Reason for Consult: home meds Line Type: Midline 09/26/17 17:48 Consult to Invasive Line Access Team [CONS] Routine Reason for Consult: Limited vascular access with need for multiple lumen access. Pt to be dc'd home with multiple medications and possible compatibility issues. Line Type: PICC Discharging clinician: Darwin aHro Anticipated date of discharge: 09/30/17 - Constitutional Vitals: Temp Pulse Resp BP Pulse Ox 98.0 F 81 16 125/82 96 09/30/17 07:19 09/30/17 07:19 09/30/17 07:19 09/30/17 07:19 09/30/17 07:19 VSS Gen: Not in any form of distress HEENT: Unremarkable, not pale Chest: CTAB Heart: S1, S2 only, no m/g/r Abdomen: Soft, not tender Extremities: No pedal edema Neuro: AAOX3. No focal deficits Skin: No rash General appearance: Present: cachectic, pleasant, no acute distress, answers questions appropriately - Patient Status Disposition: Hospice - Home Condition: Fair Functional capacity at discharge: independent ambulation Overall status at discharge: patient is progressing back to baseline - Discharge Instructions Follow Up With: Hemanth Gates Jr, MD [Primary Care Provider] - - Diet and Activity Activity: resume usual activities as tolerated Diet: regular diet
--- NOTE | 2017-09-30 11:04 | Physician Discharge Referral ---
Home Health/Hosp Referral Info Transfer to: Hospice Attending Provider: Lacy Haro Provider in Charge Post Discharge: Grain Cleaner - Diagnosis (1) Anxiety Priority: Secondary Status: Chronic (2) Adenocarcinoma of right lung, stage 4 Priority: Secondary Status: Chronic (3) DVT prophylaxis Priority: Primary Status: Acute (4) Cancer associated pain Priority: Primary Status: Acute (5) Armpit pain Priority: Primary Status: Acute - Respiratory Orders Smoking Cessation: Smoking cessation has been advised. For more information, call the [place] Tobacco Quit Line at 7-482-KICN-NOW. - Diet/Nutrition Diet/Nutrition Orders: Regular - Activity Activity Orders: Up ad william - Services Needed Following services are medically necessary services: Nursing, Home Health Aide, Physical Therapy, Occupational Therapy, Home Infusion - Transfer Medications Home Medications: Albuterol Neb [Proventil Neb] 2.5 mg IH Q6HR PRN 09/24/17 [History] Calcium Carbonate 650 mg PO QID PRN 09/24/17 [History] Dexamethasone [Decadron] 12 mg PO DAILY@1400 09/24/17 [History] Dexamethasone [Decadron] 16 mg PO QAM 09/24/17 [History] Docusate [Colace] 200 mg PO BID 09/24/17 [History] Enoxaparin [Lovenox] 70 mg SQ BID 09/24/17 [History] Fentanyl Citrate/Pf [Fentanyl 1,000 Mcg/20 ml Syrng] 400 mcg IV CONT 09/24/17 [ History] Furosemide [Lasix] 20 mg PO DAILY PRN 09/24/17 [History] Glycerin [Sani-Supp] 1 each RC DAILY PRN 09/24/17 [History] Ketamine [Ketamine] 15 mg IV CONT 09/24/17 [History] LORazepam [Lorazepam] 0.5 mg IJ Q6H PRN 09/24/17 [History] Lactulose [Enulose] 20 gm PO TIDWM 09/24/17 [History] Lidocaine/Prilocaine CREAM [Emla] 5 gm TP QID PRN 09/24/17 [History] Methadone 30 mg PO Q8HR 09/24/17 [History] Mexiletine HCl 200 mg PO Q8HR 09/24/17 [History] Naloxone [Narcan] 0.1 mg IV AD PRN 09/24/17 [History] Ondansetron [Zofran] 4 mg PO Q8HR PRN 09/24/17 [History] Pantoprazole Sodium [Protonix] 40 mg PO DAILY 09/24/17 [History] Polyethylene Glycol 3350 [MiraLAX] 17 gm PO DAILY PRN 09/24/17 [History] Prochlorperazine Maleate [Compazine] 10 mg PO Q6HR PRN 09/24/17 [History] Sennosides [Laxative] 17.2 mg PO QID PRN 09/24/17 [History] Sotalol [Betapace] 80 mg PO Q12HR 09/24/17 [History] Sucralfate [Carafate] 1 gm PO QIDAC 09/24/17 [History] Sulfamethoxazole/Trimeth [Bactrim] 20 ml PO 3XW 09/24/17 [History] clonazePAM [Klonopin] 1.5 mg PO QAM 09/24/17 [History] clonazePAM [Klonopin] 2 mg PO HS 09/24/17 [History] guaiFENesin [Guaifenesin] 200 mg PO Q4H PRN 09/24/17 [History] Glycopyrrolate [Robinul] 0.2 mg IVP Q4H PRN vial 09/30/17 [Rx] Nystatin Cream [Mycostatin Cream] 1 appl TP BID tube 09/30/17 [Rx] Allergies/Adverse Reactions: 3 Allergy/AdvReac Type Severity Reaction Status Date / Time No Known Allergies Allergy Verified 03/25/17 07:53 Certification: Further, I certify that my clinical findings support that this patient is homebound (i.e. absences from home require considerable and taxing effort and are for medical reasons or jehovah's witness services or infrequently or short duration when for other reasons) because: Homebound Reason: Patient requires assistance of a person or device to safely leave home Attestation: My signature below is to certify that this patient is under my care and that I, or nurse practitioner, or a physician's appeals assistant working with me, has a face-to -face encounter with this patient.
[2017-09-30] MEDS ORDERED: FENTANYL IVC SCH (12:00)
--- NOTE | 2017-09-30 12:20 | Palliative Progress Note ---
Date of Encounter: 09/30/17 Time of Encounter: 09:20 - Assessment and plan (1) Cancer associated pain Current Visit: Yes Status: Acute Assessment and plan: Continues on current infusions with Ketamine/Fentanyl/Hydromorphone. Under good control at present (2) Constipation due to opioid therapy Current Visit: No Status: Acute Assessment and plan: Continue bowel regimen. (3) Anxiety Current Visit: Yes Status: Chronic (4) Counseling regarding advanced care planning and goals of care Current Visit: Yes Status: Acute Assessment and plan: [facility] on site - Meet with Soto French, pharmacy ancillary, Esteban Douglas, pharmacist, Irlanda Isbell, and myself to further discuss treatment plan with medications. There has been total of 120 minutes of meeting with pt/ /palliative/and [facility] hosp[facility] r/t ongoing planning and care coordination. (5) Adenocarcinoma of right lung, stage 4 Current Visit: Yes Status: Chronic - Time Spent With Patient Total time spent is greater than 50% in coordination of care (as documented) at patient's floor/unit and/or counseling patient: 25 - 35 minutes - Subjective Interval history: Patient awake and alert - just finished shower. at bedside. Pain well controlled. [facility] present on site still arranging discharge. - Constitutional General appearance: Present: no acute distress - Respiratory Respiratory exam: Present: decreased breath sounds, CTAB - Cardiovascular Cardiovascular exam: Present: +S1, +S2 - GI/Abdominal GI/Abdominal exam: Present: diminished bowel sounds, distended, soft - Extremities Exam Additional comments: Left leg with 1-2+ edema. - Neurological Exam Neurological exam: Present: alert, oriented X3, strengths equal and symetr throughout - Skin Skin exam: Present: dry, pallor, warm Palliative Quality Palliative Quality: Screen for Code Status: Yes, Screen for Goals of Care: Yes, Screen for Pain: Yes, If Pain Regimen Started, Initiate Bowel Regimen: Yes, Screen for Nausea/Vomitting: Yes Code Status: 09/24/17 15:06 Resuscitation Status: Active [RES] Routine Comment: Resuscitation Status: DNR-Comfort Care Consult Discharge Plan - Plan Referrals: Hemanth Gates Jr, MD [Primary Care Provider] -
[2017-09-30] MEDS: Sucralfate 1 GM TABLET PO SCH ×3 (12:26→21:37)
[2017-09-30] MEDS ORDERED: HYDROMORPHONE IVC SCH (15:15)
--- NOTE | 2017-09-30 15:26 | Anesthesia Progress Note ---
Date of Encounter: 09/30/17 Time of Encounter: 15:00 Anesthesia Note - Note Note: 09/30/17 15:08 Patient was ready to leave to Hospice but an unexpected problem arose. Hospice pharmacy is not able to supply enough Fentanyl to control her pain and [place] [facility] is not able to supply more than 7-8 days of medication. We are able to supply Ketamine. Family is quite disappointed and upset as would be expected. I met with our palliative care RN(Monse), the [facility] team, pharmacy( [facility]), our CNO and Irlanda Isbell to discuss our options, which I see as limited. The wants to know how we would deal with this issue if he keeps her inpatient status. I advised the decision would be made above my level but I felt we would be forced to change our treatment plans because we could not deny care to many other patients. He seemed understanding of this. The options presented were: 1. Go home for 7-8 days then return to the hospital for trial conversion to Dilaudid, I think this is not the best option. 2. Allow trial conversion to Dilaudid now and decide over 48 hours if it is going to work. If it does work, she goes to Hospice with that, if not she goes home with her current plan and at the end of a week, she gets increased Ketamine and Versed infusion. 3. Consider trial of intrathecal medications via temporary catheter, I did speak with Dr. Manzano about this option. In reality, if she fails conversion to Dilaudid, we are out of options except trial of IT meds or sedation. Continuing these doses of Fentanyl is not possible due to shortages. Per pharmacy, Sufenta is not available as alternative either. I had this discussion with the family and patient. They have decided to stay and attempt the conversion. We will try over 48 hours , if unsuccessful, we send home on Friday until Fentanyl is exhausted and go from there. The patient and family want to be able to go home above all else. I did let Hospice know our plan and that she will be discharged to them on Friday. She does not appear imminent in . She remains alert, is eatting and O2 sats remain good. This is a very unfortunate situation for the patient. We are starting Dilaudid at 30mg/hr continuous infusion with a Dilaudid COSMETICS COUNTER MANAGER for BTP. This rate is higher than the calculated conversion rate but I think it is worth trying. I am not currently going to adjust the Ketamine infusion.
[2017-09-30] MEDS: *HR* HYDROmorphone 20 MG/20 ML PCA IVC PRN (16:53)
[2017-09-30] MEDS ORDERED: Ketamine 500 MG in 0.9 % Sodium Chloride 250 ML IVC SCH (19:09)
[2017-09-30] MEDS: *HR* LORazepam 2 MG/ML VIAL IVP PRN (19:12)
[2017-09-30] MEDS: HYDROMORPHONE IVC SCH (23:37)
[2017-10-01] MEDS: HYDROMORPHONE IVC SCH ×2 (02:45→20:05)
[2017-10-01] MEDS: *HR* LORazepam 2 MG/ML VIAL IVP SCH ×3 (05:11→18:07)
[2017-10-01] MEDS: *HR* Enoxaparin 80 MG/0.8 ML SYRINGE SQ SCH ×2 (05:24→17:53)
[2017-10-01] MEDS: *HR* HYDROmorphone 20 MG/20 ML PCA IVC PRN ×2 (06:19→13:29)
[2017-10-01] MEDS: Lactulose Oral Soln 20 GM/30 ML UDC PO SCH ×3 (07:34→15:57)
[2017-10-01] MEDS: Sucralfate 1 GM TABLET PO SCH ×4 (07:34→22:06)
[2017-10-01] MEDS: Nystatin Cream 15 GM TUBE TP SCH ×2 (08:04→22:43)
[2017-10-01] MEDS: Sennosides 8.6 MG TABLET PO SCH ×2 (08:18→22:06)
[2017-10-01] MEDS: Gabapentin 100 MG CAPSULE PO SCH (08:20)
[2017-10-01] MEDS: *HR* Methadone 10 MG TABLET PO SCH ×3 (08:22→22:05)
[2017-10-01] MEDS ORDERED: Ketamine 500 MG in 0.9 % Sodium Chloride 250 ML IVC SCH ×2 (08:30→19:40)
[2017-10-01] MEDS ORDERED: HYDROMORPHONE IVC SCH ×2 (08:50→09:15)
[2017-10-01] MEDS ORDERED: Ketorolac 30 MG/ML VIAL IVP ONE (09:33)
[2017-10-01] MEDS ORDERED: *HR* FentaNYL PATCH 100 MCG PATCH TD SCH (09:45)
--- NOTE | 2017-10-01 10:30 | Event Note ---
Date of Encounter: 10/01/17 Time of Encounter: 09:20 Patient requiring escalation of Ketamine and Hydromorphone. Dr. Morillo in to talk with pt/ regarding intrathecal catheter and patient is agreeable and would like to proceed today with the goal of discharging home Friday. Palliative lending supportive care as needed. I did restart her Furosemide 20mg orally daily as at home per pt request. Will continue to follow course and provide assistance as needed.
[2017-10-01] MEDS: Ketorolac 15 MG/ML VIAL IVP SCH ×2 (11:35→17:52)
[2017-10-01] MEDS: Furosemide 20 MG TABLET PO SCH (11:35)
[2017-10-01] MEDS: Ketamine 500 MG in 0.9 % Sodium Chloride 250 ML IVC SCH ×2 (12:03→15:38)
--- NOTE | 2017-10-01 13:10 | Anesthesia Progress Note ---
Date of Encounter: 10/01/17 Time of Encounter: 12:59 Anesthesia Note - Note Note: 10/01/17 12:59 Have seen patient several times today. She had a good night but started to complain of increased pain this morning. We have gradually increased her continuous infusion of dilaudid and is currently at 70mg/hr. She remains on dilaudid cut off man at 1mg q 10 minutes. Her ketamine rate was increased last nite and this morning. She is currently on 20mg/hr but was ordered ot be at 25mg/hr; however, the pump needs reprogrammed to allow this. She wants a Duragesic patch (her friend suggested this to her, as did the RN caring for her today). It is not practical to place enough patches to equate to her previous fentanyl infusion rate but I will add 2-100mcg patches for psychological support (her is aware of this aspect). She does well with the Ativan but does not like the sedation associated with it. I have encouraged her to use it since she reports the sedation only lasts 30-40 minutes. She rests very well during this time. I have ask Dr Manzano to place a temporary catheter for trial of epidural medications. We will place this first thing tomorrow as she will need to have her lovenox held. She will be NPO after midnight for the procedure per Dr Manzano's request. The patient is very willing to try this therapy. I have also added Toradol and increased the Neurontin. We will continue to titrate the medications as needed.
--- NOTE | 2017-10-01 14:20 | Internal Med Progress Note ---
Hospitalist Progress Note - Encounter Date of Encounter: 10/01/17 Time of Encounter: 14:20 - Subjective Interval History: 47 F with advanced metastatc CA being managed for uncontrolled cancer related pain Her medications could not be available , hence her discharge was held 09/30 Anesthesia is following and plan is for intrathecal pump she is seen and evaluated with family at the bedside and she has no new complains, her pain is currently controlled with her ketamin and dilaudid - Exam Vitals: Temp Pulse Resp BP Pulse Ox 97.9 F 81 16 125/83 95 10/01/17 08:09 10/01/17 08:09 10/01/17 08:09 10/01/17 08:09 10/01/17 08:09 Exam: VSS Gen: Speaks full sentences, not in distress HEENT: Moist oral mucosa, not pale, anciteric Chest: CTAB anteriorly Heart: S1, S2 only, no m/g/r Abdomen: Soft, not tender, no palpably enlarged organs Skin: No rash Psych: Normal affect Neuro: AAOX3, no focal deficits Extremities: No pedal edema - Assessment and Plan (1) Anxiety Current Visit: Yes Status: Chronic Assessment and Plan: On Ativan. (2) Adenocarcinoma of right lung, stage 4 Current Visit: Yes Status: Chronic Assessment and Plan: Poor prognosis. Patient is DNR comfort care Scheduled to go home Fri after intrathecal pump (3) DVT prophylaxis Current Visit: Yes Status: Acute Assessment and Plan: On Lovenox (4) Cancer associated pain Current Visit: Yes Status: Acute Assessment and Plan: Continue management with ketamine, fentanyl and Dilaudid. Palliative care team aand anesthesia and pain physician following and actively managing pain medications (5) Armpit pain Current Visit: Yes Status: Acute Assessment and Plan: as above - Time Spent with Patient Total time spent is greater than 50% in coordination of care (as documented) at patient's floor/unit and/or counseling patient: Plan of Care Discussed with: patient Consult Discharge Plan - Plan Referrals: Hemanth Gates Jr, MD [Primary Care Provider] - Prescriptions: Gabapentin [Neurontin] 100 mg PO TID 7 Days #21 capsule LORazepam [Ativan] 1 mg PO TID 7 Days #21 tablet Methadone 35 mg PO Q8H 7 Days #21 tablet Sucralfate [Carafate] 1 gm PO QIDAC 7 Days #28 tablet (5) Armpit pain Qualifiers: Laterality: right Qualified Code(s): M79.621 - Pain in right upper arm
[2017-10-01] MEDS: Gabapentin 300 MG CAPSULE PO SCH ×2 (14:22→22:07)
[2017-10-02] MEDS: *HR* LORazepam 2 MG/ML VIAL IVP SCH ×4 (00:06→18:13)
[2017-10-02] MEDS: Ketorolac 15 MG/ML VIAL IVP SCH ×4 (00:06→18:13)
[2017-10-02 01:50] LABS: Basophils % 0.2 %; Eosinophils # 0.1 K/mcL (0.0-0.6); Eosinophils % 0.6 %; Hematocrit 27.2 % (35.3-44.9); Hemoglobin 8.3 g/dL (11.5-15.4); Immature Granulocytes % 3.3 % (0-4); Lymphocytes # 0.9 K/mcL (0.6-4.6); Lymphocytes % 4.7 %; Mean Corpuscular HGB Conc 30.5 g/dL (31.6-35.5); Mean Corpuscular Hemoglobin 27.6 pg (28.0-33.3); Mean Corpuscular Volume 90.4 fL (83.0-100.0); Mean Platelet Volume 9.6 fL (9.4-12.4); Monocytes # 1.1 K/mcL (0.0-1.3); Monocytes % 5.5 %; Neutrophils # 17.1 K/mcL (1.6-8.9); Platelet Count 232 K/mcL (140-400); Red Blood Count 3.01 M/mcL (3.82-4.97); Red Cell Distribution Width 18.9 % (11.5-14.5); Segmented Neutrophils % 85.7 %
[2017-10-02] MEDS: HYDROMORPHONE IVC SCH ×4 (04:15→21:55)
--- NOTE | 2017-10-02 08:05 | History & Physical Report ---
Date of Encounter: 10/02/17 Time of Encounter: 07:58 24 Hour HP Update - Instructions Instructions: If the History and Physical is less than 30 days old and was completed prior to A.M. admission and or procedure and has NOT been updated on calendar day of procedure please complete this update prior to performing procedure. - Update Patient reports changes in Medical Condition: No Changes in examination, assessment, or condition: No Changes in Medication: No Preop tests/diagnostics Reviewed: Yes Surgery Remains Indicated: Yes Consent for Planned Operative Procedure(s) Verified: Yes - Pre-Operative Checklist Preoperative Checklist Indicated: Yes Prophylactic Antibiotic Ordered: No Home Medications Include Beta Talia: No Is VTE Prophylaxis Indicated?: NO
--- NOTE | 2017-10-02 08:08 | Pain Management Progress Note ---
Date of Encounter: 10/02/17 Time of Encounter: 08:05 - Assessment and Plan (1) Cancer associated pain Current Visit: Yes Status: Acute Discussed case with patient and . Also discussed with the risk of present fetus and associated pregnany risks. The patient's condition is such : they have been abstinent, pt received chemotherapy since, the pt had a TL. Unlikely risk under present circumstances. Subjective Patient reports: still having pain Objective Vital Signs - Last 8 Hours Temp Pulse Resp BP Pulse Ox 10/02/17 01:53 98.2 F 77 16 122/75 95 Intake and Output 10/01/17 10/02/17 10/02/17 23:59 07:59 15:59 Intake Total 25 / 25 50 / 50 Balance 25 / 25 50 / 50 Intake: IV Fluids 25 / 25 50 / 50 HYDROmorphone (PF) 500 MG In 7 / 7 50 / 50 Empty Bag 1 Each @ 60 MG/HR 6 mls/hr IVC .Q8H20M [facility] Rx#: [id number] Ketamine 500 MG In 0.9 % Sodium / 18 Chloride 250 ML @ 25 MG/HR 12. 75 mls/hr IVC CONT [facility] Rx#: [id number] - General physical appearance severe pain - Labs 10/02/17 01:30 Consult Discharge Plan - Plan Referrals: Hemanth Gates Jr, MD [Primary Care Provider] - Prescriptions: Gabapentin [Neurontin] 100 mg PO TID 7 Days #21 capsule LORazepam [Ativan] 1 mg PO TID 7 Days #21 tablet Methadone 35 mg PO Q8H 7 Days #21 tablet Sucralfate [Carafate] 1 gm PO QIDAC 7 Days #28 tablet
--- NOTE | 2017-10-02 08:46 | Pain Management Procedure Note ---
Date of procedure: 10/02/17 Pre-op diagnosis: Chronic intractable pain, cancer associated pain Post-op diagnosis: same Procedure: 18 G tuohy 20 Ga Perifix Left tunnel 2-0 prolene, [place] Preoperative diagnosis: Chronic intractable pain Cancer-related pain Postoperative diagnosis: Same Procedure: 1. Tunneled thoracic epidural catheter placement under fluoroscopy Indication: Patient is a stage IV cancer patient with severe right flank pain and right rib pain associated with a large pleural effusion and malignancy. The patient's on high-dose IV fentanyl, oral medications and IV ketamine with graduating loss of control the patient's symptoms. For pain control the epidural catheter placement was requested. Clinic note : 47-year-old female with a history of stage IV adenocarcinoma the lung on the right side who has failed chemotherapy, clinical trials associated with [facility] in [place] [facility] [place]. The patient is now DNR comfort care. The risks, benefits and alternatives were explained to the patient's medical power of research attorney, her , and written informed consent was obtained. Procedure in detail: The patient was taken to the operating room #6. The patient was connected to standard ASA monitors and rotated into a prone padded position on the operating room table. The patient was sterilely prepped and draped in a sterile surgical fashion using chlorhexidine and sterile towels and Ioban. After sterile draping occurred timeout was then performed per hospital protocol. Fluoroscopy was then used to identify the thoracic spine. After identifying the thoracic spine, the T10-11 space was identified and the skin and subcutaneous tissue was anesthetized with 5 mL of lidocaine 2% solution. A 18-gauge Touhy needle was advanced in a left paramedian fashion into the epidural space using loss resistance technique with preservative-free normal saline. After access was achieved, I disconnected the pulsator syringe and obtained a 20-gauge Perifix epidural catheter and advanced it approximately 8-9 cm into the epidural space. I then connected the Luer-Raheel connector and obtained a small amount of Isovue 200 M and administered this into the area showing distal spread at approximately the T7 level. After deeming successful placement I disconnected the Isovue syringe and Luer-Raheel connector and gently backed the needle out of the epidural space. I then made a small paul at the skin entry point and gently backed the needle out of the patient. The paul was made using a 11 blade. I then located a spot on the left flank approximately 1-1-1/2 hand widths left laterally. I then localized area with 5 more milliliters of lidocaine 2% solution. I then made a stab incision with 11 blade. I then obtain the Touhy needle and advanced it from the left flank medially towards the original skin entry point and brought the june-fix catheter from the midline out laterally to left. I then connected the Luer-Raheel attachment once more. I then closed the midline with a Steri-Strip. The lateral flank incision was sutured with 2 interrupted 2-0 Prolene stitches. The patient was then bandaged with Tegaderm and sterile 4 x 4's, undraped and taken to the recovery where the patient observed no postprocedural complications. Patient will be under continuous epidural infusion for pain control. Anesthesia: local Surgeon: Carlos Manzano Was there an advertising sales assistant present: No Estimated blood loss (cc): 1 Specimen: 0 Pathology: none sent Condition: stable Disposition: no change
[2017-10-02] MEDS ORDERED: FENTANYL EP SCH (09:00)
[2017-10-02] MEDS ORDERED: BUPIVACAINE MPF 0.5% EP SCH (09:00)
[2017-10-02] MEDS ORDERED: SODIUM CHLORIDE 0.9% EP SCH (09:00)
[2017-10-02] MEDS ORDERED: Lidocaine -MPF 2% 5 ML VIAL INFILT ONE (09:01)
[2017-10-02] MEDS ORDERED: Isovue-M 200 10 ML VIAL IT ONE (09:01)
[2017-10-02] MEDS: Lactulose Oral Soln 20 GM/30 ML UDC PO SCH ×3 (09:22→18:13)
[2017-10-02] MEDS: Sucralfate 1 GM TABLET PO SCH ×4 (09:22→21:53)
[2017-10-02] MEDS: Sennosides 8.6 MG TABLET PO SCH ×2 (09:23→21:53)
[2017-10-02] MEDS: *HR* Methadone 10 MG TABLET PO SCH ×3 (09:23→21:54)
[2017-10-02] MEDS: Gabapentin 300 MG CAPSULE PO SCH ×3 (09:24→21:53)
[2017-10-02] MEDS: Nystatin Cream 15 GM TUBE TP SCH ×3 (09:24→22:38)
[2017-10-02] MEDS: Furosemide 20 MG TABLET PO SCH (09:24)
[2017-10-02] MEDS ORDERED: HYDROMORPHONE IVC SCH ×3 (09:46→12:35)
[2017-10-02] MEDS ORDERED: Ketamine 500 MG in 0.9 % Sodium Chloride 250 ML IVC SCH ×2 (10:46→15:00)
--- NOTE | 2017-10-02 11:24 | Event Note ---
Date of Encounter: 10/02/17 Time of Encounter: 10:45 Patient has returned from intrathecal cath placement - Dr. Morillo has been in frequently to make adjustments on IV/Epidural medications. She is comfortable at present - slightly drowsy and resting quietly. and daughter here. I notified [facility] that catheter in and need for obtaining epidural pump. Provided emotional support to .
[2017-10-02] MEDS: *HR* HYDROmorphone 20 MG/20 ML PCA IVC PRN (11:31)
[2017-10-02] MEDS: FENTANYL EP SCH (11:48)
[2017-10-02] MEDS: SODIUM CHLORIDE 0.9% EP SCH (11:48)
[2017-10-02] MEDS: BUPIVACAINE MPF 0.5% EP SCH (11:48)
[2017-10-02] MEDS: Ketamine 500 MG in 0.9 % Sodium Chloride 250 ML IVC SCH ×2 (11:50→13:58)
--- NOTE | 2017-10-02 14:55 | Anesthesia Progress Note ---
Date of Encounter: 10/02/17 Time of Encounter: 14:46 Anesthesia Note - Note Note: 10/02/17 14:46 Patient has temporary epidural catheter placed this morning. I have slowly increased the infusion rate of the epidural infusion and she is currently at 15cc/hr of fentanyl and 0.125% bupivacaine. She has great pain control and I have been able to wean her Dilaudid continuous infusion down to 40mg/hr and her Ketamine rate down to 12mg/hr. She remains on all other medications as previously ordered. She has not yet urinated and we will need to watch this as a side effect from the epidural infusion. She has very slight leg weakness but is still able to walk from bed to the chair. Hospice is arranging getting an epidural pump. They have the prescription for the infusion. We will need to update the other medications for hospice in the morning. She is tentatively set to go home tomorrow. If the epidural infusion works over the weekend, we will arrange to have a permanent pump and catheter placed early next week by Dr. Manzano. Her physical exam remains unchanged. She remains alert and oriented. Rates her pain as a 3-4/10. I will not adjust medications further today unless her condition warrants doing so.
--- NOTE | 2017-10-02 15:00 | Internal Med Progress Note ---
Hospitalist Progress Note - Encounter Date of Encounter: 10/02/17 Time of Encounter: 14:59 - Subjective Interval History: 47 F with advanced metastatc CA being managed for uncontrolled cancer related pain Her medications could not be available , hence her discharge was held 09/30 Anesthesia is following patient is s/p epidural pump placement Pain physician following and adjusting medications No new complains palliative and hospice following - Exam Vitals: Temp Pulse Resp BP Pulse Ox 97.6 F 79 16 100/63 95 10/02/17 14:46 10/02/17 14:46 10/02/17 14:46 10/02/17 14:46 10/02/17 14:46 Exam: Not in distress AAOX3, moves all extremtiies, ambulatory chest is CTAB HS S1, S2, no mg/r Abdomen is not tender No pedal edema - Assessment and Plan (1) Anxiety Current Visit: Yes Status: Chronic Assessment and Plan: On Ativan. (2) Adenocarcinoma of right lung, stage 4 Current Visit: Yes Status: Chronic Assessment and Plan: Poor prognosis. Patient is DNR comfort care Scheduled to go home Fri after intrathecal pump (3) DVT prophylaxis Current Visit: Yes Status: Acute Assessment and Plan: On Lovenox (4) Cancer associated pain Current Visit: Yes Status: Acute Assessment and Plan: Continue management with ketamine, fentanyl and Dilaudid. Palliative care team aand anesthesia and pain physician following and actively managing pain medications (5) Armpit pain Current Visit: Yes Status: Acute Assessment and Plan: as above - Time Spent with Patient Total time spent is greater than 50% in coordination of care (as documented) at patient's floor/unit and/or counseling patient: Plan of Care Discussed with: patient Internal Medicine: Result - Labs CBC & Chem 7: 10/02/17 01:30 Labs: Short CBC 10/02/17 Range/Units 01:30 WBC 19.9 H (4.3-11.1) K/mcL Hgb 8.3 L (11.5-15.4) g/dL Hct 27.2 L (35.3-44.9) % Plt Count 232 (140-400) K/mcL Neutrophils # 17.1 H (1.6-8.9) K/mcL - Impressions Impressions Epidural Injection 10/02/17 00:00 IMPRESSION: Intraprocedural fluoroscopic spot images as above. See separate procedure report for more information. D/ / Con Leroy MD / Con Leroy MD Interpreting Provider: Con Leroy MD Thoracic Spine X-Ray 10/02/17 00:00 IMPRESSION: Intraprocedural fluoroscopic spot images as above. See separate procedure report for more information. D/ / Con Leroy MD / Con Leroy MD Interpreting Provider: Con Leroy MD Consult Discharge Plan - Plan Referrals: Hemanth Gates Jr, MD [Primary Care Provider] - Prescriptions: Gabapentin [Neurontin] 100 mg PO TID 7 Days #21 capsule LORazepam [Ativan] 1 mg PO TID 7 Days #21 tablet Methadone 35 mg PO Q8H 7 Days #21 tablet Sucralfate [Carafate] 1 gm PO QIDAC 7 Days #28 tablet (5) Armpit pain Qualifiers: Laterality: right Qualified Code(s): M79.621 - Pain in right upper arm
[2017-10-02] MEDS ORDERED: Ringers Solution, Lactated 500 ML IVC ONE (16:48)
[2017-10-02] MEDS: Ringers Solution, Lactated 1,000 ML ONE ×2 (17:06→18:13)
[2017-10-02] MEDS: *HR* Enoxaparin 80 MG/0.8 ML SYRINGE SQ SCH (18:12)
[2017-10-03] MEDS: BUPIVACAINE MPF 0.5% EP SCH ×2 (00:12→14:58)
[2017-10-03] MEDS: SODIUM CHLORIDE 0.9% EP SCH ×2 (00:12→14:58)
[2017-10-03] MEDS: FENTANYL EP SCH ×2 (00:12→14:58)
[2017-10-03] MEDS: *HR* LORazepam 2 MG/ML VIAL IVP SCH ×3 (00:25→12:04)
[2017-10-03] MEDS: Ondansetron 4 MG/2 ML VIAL IVP PRN (01:39)
[2017-10-03] MEDS: HYDROMORPHONE IVC SCH (04:28)
[2017-10-03] MEDS: Sucralfate 1 GM TABLET PO SCH ×3 (05:29→17:01)
[2017-10-03] MEDS: *HR* Enoxaparin 80 MG/0.8 ML SYRINGE SQ SCH (05:31)
[2017-10-03 07:33] VITALS: BP 114/77
[2017-10-03] MEDS: Furosemide 20 MG TABLET PO SCH (08:36)
[2017-10-03] MEDS: *HR* Methadone 10 MG TABLET PO SCH ×2 (08:36→14:14)
[2017-10-03] MEDS: Lactulose Oral Soln 20 GM/30 ML UDC PO SCH ×3 (08:37→17:01)
[2017-10-03] MEDS: Sennosides 8.6 MG TABLET PO SCH (08:37)
[2017-10-03] MEDS: Gabapentin 300 MG CAPSULE PO SCH ×2 (08:37→14:13)
[2017-10-03] MEDS: Nystatin Cream 15 GM TUBE TP SCH (08:38)
--- NOTE | 2017-10-03 10:08 | Anesthesia Progress Note ---
Date of Encounter: 10/03/17 Time of Encounter: 10:08 Anesthesia Note - Note Note: 10/03/17 10:22 Patient has very well controlled pain today. She had a bit of urine retention last nite, required one straight cath but has been able to urinate since then. Her epidural rate remains at 15cc/hr, her Dilaudid infusion is 40mg/hr, her Ketamine is down to 12mg/hr. She rarely uses EXTRUSION PRESS OPERATOR. Still has some leg weakness but is able to get to bathroom. She is going home with Hospice today. Prescriptions written. Dr. Manzano is working to get her into surgery for permanent catheter by next Friday. She has done well overall and I believe her current treatment plan is working great.
--- NOTE | 2017-10-03 12:03 | Internal Med Progress Note ---
Hospitalist Progress Note - Encounter Date of Encounter: 10/03/17 Time of Encounter: 12:02 - Subjective Interval History: 47 F with advanced metastatc CA being managed for uncontrolled cancer related pain Her medications could not be available , hence her discharge was held 09/30 Anesthesia is following patient is s/p epidural pump placement Pain physician following and adjusting medications Plan is for home hospice today - Exam Vitals: Temp Pulse Resp BP Pulse Ox 97.3 F L 64 16 114/77 98 10/03/17 07:32 10/03/17 07:32 10/03/17 07:32 10/03/17 07:32 10/03/17 07:32 Exam: Not in distress AAOX3, moves all extremtiies, ambulatory chest is CTAB HS S1, S2, no mg/r Abdomen is not tender No pedal edema - Assessment and Plan (1) Anxiety Current Visit: Yes Status: Chronic Assessment and Plan: On Ativan. (2) Adenocarcinoma of right lung, stage 4 Current Visit: Yes Status: Chronic Assessment and Plan: Poor prognosis. Patient is DNR comfort care Scheduled to go home today-palliative and anesthesia following (3) DVT prophylaxis Current Visit: Yes Status: Acute Assessment and Plan: On Lovenox (4) Cancer associated pain Current Visit: Yes Status: Acute Assessment and Plan: Continue management with ketamine, fentanyl and Dilaudid. Palliative care team aand anesthesia and pain physician following and actively managing pain medications (5) Armpit pain Current Visit: Yes Status: Acute Assessment and Plan: as above - Time Spent with Patient Total time spent is greater than 50% in coordination of care (as documented) at patient's floor/unit and/or counseling patient: Plan of Care Discussed with: nurse Internal Medicine: Result - Labs CBC & Chem 7: 10/02/17 01:30 Consult Discharge Plan - Plan Referrals: Hemanth Gates Jr, MD [Primary Care Provider] - Prescriptions: fentaNYL [Fentanyl] 200 patch TD Q3D 10 Days #3 patch.td72 Gabapentin [Neurontin] 300 mg PO TID #21 capsule LORazepam [Ativan] 1 mg PO TID 7 Days #21 tablet Methadone 35 mg PO Q8H 7 Days #21 tablet Sucralfate [Carafate] 1 gm PO QIDAC 7 Days #28 tablet (5) Armpit pain Qualifiers: Laterality: right Qualified Code(s): M79.621 - Pain in right upper arm
[2017-10-03] MEDS: *HR* HYDROmorphone 20 MG/20 ML PCA IVC PRN (13:09)
== END 2017-10-03 19:11 | disposition hospice, home (50) | DRG 181 ==
LOC: 2ANU 12:26 → SUATTDRO 12:26
PROVIDERS: ADMIT Internal Medicine; ATTEND Internal Medicine
PROC: [UNRECOGNIZED PROCEDURE] (2017-10-02 07:45)